=== PATIENT | male | born 1945 | race Caucasian/White ===

== ENCOUNTER 2020-05-01 14:49 | Emergency (ER) | payer MEDICARE, SELFPAY ==
--- NOTE | ~2020-05-01 | CT_ITS ---
EXAMINATION: CT abdomen pelvis w con EXAM DATE: 05/01/2020 16:33 INDICATION: Left-sided abdominal pain. TECHNIQUE: Spiral CT of the abdomen and pelvis was performed following intravenous injection of 100 m L Omnipaque 350. Axial, coronal and sagittal images were reviewed. The dose-length product (DLP) fo r this examination was 1474.86 mGy-cm. The exposure was tailored according to patient size (auto mA exposure control), and iterative reconstruction (ASIR) was used as additional dose reduction techniqu e. Comparison is made to prior examination from 08/29/2018, 04/08/2016. FINDINGS: Pancreatic tail cystic region measuring about 1.3 cm, demonstrating long-term stability con sistent with benign histology. The liver, spleen, adrenal glands and pancreas are otherwise unremark able. Gallbladder not identified, patient likely has had cholecystectomy. Portal and splenic veins are patent. Kidneys enhance symmetrically. There is no hydronephrosis. The prostate is unremarkab le. The bladder is unremarkable. There is no retroperitoneal or pelvic lymphadenopathy. There is mild scattered arteriosclerotic disease. There is colonic redundancy, with sigmoid colon extending up to the upper abdomen, measuring up to 9 cm in diameter, but no mesenteric twisting, a finding which was present on a prior study in 2016 when sigmoid volvulus was reported. Moderate amount of colonic stool in the ascending and transverse colo n which is also extremely tortuous. Patient has had laparotomy. Small seroma left of midline just above the umbilicus. The stomach and sm all bowel are unremarkable. No free intraperitoneal gas. The heart is normal in size. There ar e no pericardial or pleural effusions. The lung bases are unremarkable. There are no osteoblastic o r osteolytic lesions identified. IMPRESSION: Severe colonic tortuosity with moderately distended right hemicolon, more severely disten ded sigmoid colon, Colonic redundancy likely puts this patient at risk for recurrent sigmoid volvulu s, but findings on this study consistent with constipation. Reviewed, dictated and finalized at location A. SCAPE FOREMAN IMPRESSION: Severe colonic tortuosity with moderately distended right hemicolon , more severely distended sigmoid colon, Colonic redundancy likely puts this p atient at risk for recurrent sigmoid volvulus, but findings on this study consi stent with constipation.
[2020-05-01 15:10] VITALS: BP 148/70; PULSE 97; RESP 16; TEMP 36.3; O2SAT 97
[2020-05-01 15:52] LABS: Basophils Percent Auto 0.5 % (0.2-1.2); Eosinophils Absolute Auto 0.3 K/mm3 (0-0.3); Eosinophils Percent Auto 3.4 % (0-4.4); Hemoglobin 13.2 g/dL (14.0-18.0); Immature Granulocyte Absolute 0.04 K/mm3 (0.00-0.031); Immature Granulocyte Percent A 0.5 % (0-0.5); Lymphocytes Absolute Auto 3.14 K/mm3 (0.9-3.2); Lymphocytes Percent Auto 38.7 % (18.3-44.2); Mean Corpuscular HGB Conc 33.8 g/dl (32-36); Mean Corpuscular Hemoglobin 29.5 pg (26-34); Mean Corpuscular Volume 87.2 fl (80-100); Mean Platelet Volume 9.6 fl (7.4-10.4); Monocytes Absolute Auto 0.8 K/mm3 (0.1-0.6); Neutrophils Absolute Auto 3.8 K/mm3 (1.3-6.7); Neutrophils Percent Auto 46.9 % (45.5-73.1); Platelet Count Result 250 k/mm3 (150-375); Red Blood Count 4.47 M/mm3 (4.6-6.20); Red Cell Distribution Width 12.9 % (11.5-14.5); White Blood Count 8.1 K/mm3 (4.5-10.0)
[2020-05-01] MEDS: SODIUM CHLORIDE 0.9% IV 500 ML 999 ML IV CONT (15:52)
[2020-05-01] MEDS: FAMOTIDINE 20 MG/2 ML VIAL IV PUSH (15:53)
[2020-05-01] MEDS: ONDANSETRON INJ 4 MG/2 ML VIAL IV PUSH (15:53)
--- NOTE | 2020-05-01 15:53 | ED.ABDPAIN ---
HPI - Abdominal Pain General Chief Complaint: Abdominal Pain Stated Complaint: ABD PAIN [id number] Time Seen by Provider: 05/01/20 15:23 Source: patient and family Mode of arrival: ambulatory Limitations: no limitations History of Present Illness HPI narrative: Patient is a 75-year-old male who presents with abdominal pain localized to the left abdomen that is been present for 2 weeks intermittent in nature became worse over the last 24 hours noting aching pain worse with activity or movement with associated nausea and chills history abdominal surgeries 980 has had a colon resection patient also notes abdominal hernia repair patient on arrival is in no distress notes that he is distended which is new patient has not taken anything for his symptoms and on arrival is in no distress denies rectal bleeding or melena or urinary issues Related Data Home Medications Medication Instructions Recorded Confirmed simvastatin 40 mg tablet 20 mg PO HS tablet 07/25/19 03/03/20 acetaminophen [Tylenol Arthritis] 1,300 mg PO QAM AND QPM PRN 05/01/20 diltiazem HCl [Cartia XT] 240 mg PO DAILY 05/01/20 tramadol 100 mg PO QID PRN 05/01/20 Allergies Allergy/AdvReac Type Severity Reaction Status Date / Time bee pollen Allergy Intermediate anaphylaxis Verified 05/01/20 15:26 reaction Penicillins Allergy Unknown breaks out Verified 05/01/20 15:26 in [facility] Review of Systems Review of Systems: All systems reviewed & are unremarkable except as noted in HPI and below PMFSH Past Medical History Medical History Arthritis Back pain High blood pressure Type 2 diabetes mellitus Surgical History Surgical History Hx of cholecystectomy Family History Family History Father Diabetes mellitus Family history of glaucoma Hypertension Family history of elevated blood lipids Cerebrovascular accident Mother Diabetes mellitus Family history of mental disorder Family history of glaucoma Hypertension Family history of elevated blood lipids Cerebrovascular accident Sibling Diabetes mellitus Depression Family history of elevated blood lipids Other Family history of malignant neoplasm Social History Social History Smoking status: Former smoker Second hand tobacco smoke exposure: No Smoking end date: 06/14/07 Alcohol intake: never Substance use: never Additional living arrangements comments: (elio) Exam Narrative: Exam Narrative: GENERAL: Well-appearing, well-nourished, and in no acute distress. HEAD: Normocephalic, atraumatic. EYES: PERRLA and EOMI. ENT: Nares clear, no rhinorrhea or epistaxis. Mucous membranes moist. CHEST: Clear to auscultation. No respiratory distress. No wheezes rales or rhonchi HEART: Regular rate and rhythm. No murmur heard. Normal peripheral pulses. ABDOMEN: Soft, tenderness of the left abdomen with voluntary guarding, distended EXTREMITIES: Normal range of motion. No edema. SKIN: Warm, dry, no rash. NEURO: No focal deficits. Alert and oriented x3. Cranial nerves II through XII grossly intact PSYCH: Normal mood and affect. Course Course Emergency Course: Patient in the room in no distress aware of case findings treatment plan diagnosis discussion with general surgery and recommendations patient refused the soapsuds enema his notes that he can do that at home and she has the materials to do so patient will be managed his constipation and will follow in clinic with general surgery and has been given strict reasons to return was hydrated and given medications in the emergency department with interval improvement Vital Signs Vital signs: Vital Signs Temperature 97.3 F L 05/01/20 15:10 Pulse Rate 97 05/01/20 15:10 Respiratory Rate
[2020-05-01 16:05] LABS: Alanine Aminotransferase 23 U/L (4-50); Albumin Level 4.1 g/dL (3.5-5.1); Alkaline Phosphatase 103 U/L (38-126); Anion Gap 8 mmol/L (8-16); Aspartate Amino Transferase 31 U/L (17-59); Bilirubin,Total 0.7 mg/dL (0.2-1.3); Blood Urea Nitrogen 20 mg/dL (9-20); Calcium 8.9 mg/dL (8.4-10.2); Carbon Dioxide 30 mmol/L (22-30); Chloride 102 mmol/L (98-107); Estimated CRCL calculation 72 ml/min; Estimated Glomerular Filt Rate > 60; Glucose 123 mg/dL (75-110); Lipase 28 U/L (23-300); Potassium 3.5 mmol/L (3.4-5.0); Sodium 140 mmol/L (137-145)
[2020-05-01 16:18] VITALS: BP 139/71; PULSE 80; RESP 20; O2SAT 97
[2020-05-01 16:55] LABS: Add Urine Microscopic? NO; Appearance Urine Clear (Clear); Bilirubin Urine Negative (Negative); Blood Urine Negative (Negative); Color Urine Colorless (Yellow); Glucose Urine UA Negative (Negative); Ketones Urine Negative (Negative); Leukocyte Esterase Ur Negative LEU/UL (Negative); Nitrate Urine Negative (Negative); Protein Urine Negative (Negative); Specific Grav Ur 1.014 (1.001-1.035); Urobilinogen Urine Negative mg/dL (<2.0)
[2020-05-01 16:57] LABS: Lactic Acid Reflex 1.5 mmol/L (0.7-2.1)
[2020-05-01 17:30] VITALS: BP 127/65; PULSE 81; RESP 20; O2SAT 96
[2020-05-01 18:00] VITALS: BP 133/66; PULSE 80; RESP 20; O2SAT 96
--- NOTE | 2020-05-01 18:30 | PC.NURSE ---
Pt refusing enema at this time. PT states they have the supplies at home and will do the enema at home. EDP made aware.
[2020-05-01 19:00] VITALS: BP 139/80; PULSE 84; RESP 20; O2SAT 98
== END 2020-05-01 19:15 | disposition home or self-care (01) ==
PROVIDERS: Emergency Medicine Emergency Medical Services; Emergency Provider Emergency Medicine; PCP Family Medicine
DX: R10.9 Unspecified abdominal pain (principal); K59.00 Constipation, unspecified; M19.90 Unspecified osteoarthritis, unspecified site; I10 Essential (primary) hypertension; E11.9 Type 2 diabetes mellitus without complications
CPT/HCPCS: 36415; 74177; 80053; 81003; 83605; 83690; 85025; 96361; 96374; 96375; 99284; J0131; J2405; J7040; Q9967

== ENCOUNTER 2020-07-23 12:31 | Outpatient (RCR) | payer MEDICARE, SELFPAY ==
[2020-07-23 12:38] VITALS: BMI 40.3
[2020-07-23 12:44] VITALS: BMI 40.3
== END 2020-10-07 11:08 | disposition home or self-care (01) ==
LOC: ANHDMC 12:31
PROVIDERS: Family Provider Family Medicine; PCP Family Medicine; Visit Provider Physician Assistant
DX: E11.65 Type 2 diabetes mellitus with hyperglycemia (principal); Z71.3 Dietary counseling and surveillance
CPT/HCPCS: 97802

== ENCOUNTER 2021-07-08 09:59 | Outpatient (CLI) | payer MEDICARE, SELFPAY ==
[2021-07-08 17:01] LABS: Anion Gap 15 mmol/L (8-16); Blood Urea Nitrogen 21 mg/dL (9-20); Calcium 10.5 mg/dL (8.4-10.2); Carbon Dioxide 28 mmol/L (22-30); Chloride 94 mmol/L (98-107); Estimated Glomerular Filt Rate > 60; Glucose 198 mg/dL (65-110); HDL Direct 35 mg/dL; Potassium 3.9 mmol/L (3.4-5.0); Sodium 137 mmol/L (137-145)
[2021-07-08 17:13] LABS: LDL Cholesterol Direct 63 mg/dL
[2021-07-08 17:32] LABS: Thyroid Stimulating Hormone 0.759 uIU/mL (0.465-4.680)
[2021-07-08 17:34] LABS: Creatinine Urine 181.6 mg/dL
[2021-07-08 17:38] LABS: MALB Creatinine Ratio 4.5 mg/g (0-30); Microalbumin Urine Random 8.2 mg/L (0-16.7)
== END 2021-07-08 10:00 | disposition home or self-care (01) ==
PROVIDERS: PCP Family Medicine; Visit Provider Internal Medicine Endocrinology, Diabetes & Metabolism
DX: E11.65 Type 2 diabetes mellitus with hyperglycemia (principal); E78.2 Mixed hyperlipidemia; Z79.4 Long term (current) use of insulin
CPT/HCPCS: 36415; 80048; 82043; 82607; 83718; 83721; 84443

== ENCOUNTER 2021-11-12 09:55 | Outpatient (CLI) | payer MEDICARE, SELFPAY | END 2021-11-12 09:56 | disposition home or self-care (01) | LOC: ANHAUDIO 09:56 | PROVIDERS: PCP Family Medicine; Referring Provider Family Medicine; Visit Provider Family Medicine | DX: H91.90 Unspecified hearing loss, unspecified ear (principal) | CPT/HCPCS: 92557; 92567 ==

== ENCOUNTER 2022-01-27 09:00 | Outpatient (RCR) | payer MEDICARE, SELFPAY | END 2022-01-27 23:59 | disposition home or self-care (01) | LOC: ANHAUDIO 09:00 | PROVIDERS: PCP Family Medicine; Visit Provider Family Medicine | DX: Z46.1 Encounter for fitting and adjustment of hearing aid (principal) | CPT/HCPCS: 99199; V5261; V5264 ==

== ENCOUNTER → 2022-03-10 14:01 | Outpatient (CLI) | payer MEDICARE, SELFPAY ==
--- NOTE | ~2022-03-10 | XR_ITS ---
XR lumbar spine 2-3V 03/10/2022 14:34 Indication: Low back pain Procedure: 3 views lumbar spine Comparison: No prior studies for comparison. Findings: There is advanced disc narrowing and endplate degenerative change at all lumbar levels. The re is moderate multilevel facet hypertrophy at L3-4, L4-5 and L5-S1. There are ventral osteophytes at multiple levels. No acute fracture or traumatic malalignment. Pedicles intact. Sacral foramen are sy mmetric. Impression: 1: Severe lumbar spondylosis. Reviewed, dictated and finalized at location B. Impression: 1: Severe lumbar spondylosis.
--- NOTE | ~2022-03-10 | XR_ITS ---
EXAMINATION: XR_CERV2-3V_CR DATE: 03/10/2022 14:34 INDICATION: Neck pain. TECHNIQUE: 3 views of cervical spine on 4 radiographs were obtained. COMPARISON: Cervical spine radiographs 07/05/2017, CT cervical spine 11/03/2011 FINDINGS: Bone alignment is normal. There are changes of anterior fusion procedure from C4 to C7 with C5 corpectomy, healed interbody strut graft and interbody bone graft, and anterior plate and screws. There are changes of posterior fusion procedure from C5 to T1 with C5 and C6 lateral mass screws and T1 pedicle screws. Vertebral body heights are normal. Disc heights are normal at C2-C3 and C3-C4. At C3-C4, there is severe bilateral facet joint osteoarthritis. No central canal stenosis or prevertebr al soft tissue swelling. IMPRESSION: 1. Anterior fusion procedure from C4 to C7. 2. Posterior fusion procedure from C5 to T1. Reviewed, dictated and finalized at location A.
--- NOTE | ~2022-03-10 | XR_ITS ---
EXAMINATION: XR hand LT 2V, XR hand RT 2V DATE: 03/10/2022 14:34 INDICATION: Arthralgia with bilateral hand pain TECHNIQUE: 1. Posteroanterior and lateral views of the left hand were obtained. 2. Posteroanterior and lateral views of the right hand were obtained. COMPARISON: None. FINDINGS: Partial amputation of the distal aspect of the left second digit with osteotomy at the level of the h ead of the middle phalanx. Very small thin wire-like metallic density in the soft tissues at the palm ar/ulnar aspect of the left second middle phalanx. Flexion at the left fifth proximal interphalangeal joint which could be positional. Otherwise normal alignment at the bilateral hands. No fracture. Rel ative symmetric pattern of polyarticular osteoarthritis, severe at the right second-fourth and left a nd third and fourth metacarpophalangeal joints and at the bilateral first interphalangeal and third d istal interphalangeal joints. Moderate severity osteoarthritis at the left distal radioulnar, left se cond metacarpophalangeal and many of the remaining bilateral interphalangeal joints. Mild osteoarthri tis at the remaining joints throughout both hands. No erosions to suggest inflammatory arthritis. Ext ensive vascular calcifications throughout both hands and wrists. IMPRESSION: 1. 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 Reviewed, dictated and finalized at location A. IMPRESSION: 1. Extensive moderate to severe polyarticular osteoarthritis at the bilateral h ands.
== END ==
PROVIDERS: PCP Physician Assistant; Visit Provider Physician Assistant
DX: M25.50 Pain in unspecified joint (principal); M47.896 Other spondylosis, lumbar region; Z98.1 Arthrodesis status; M19.041 Primary osteoarthritis, right hand; M19.042 Primary osteoarthritis, left hand
CPT/HCPCS: 72040; 72100; 73120

== ENCOUNTER 2022-04-21 12:22 | Outpatient (RCR) | payer MEDICARE, SELFPAY ==
[2022-04-21 15:58] VITALS: BMI 38.5
== END 2022-07-06 08:19 | disposition home or self-care (01) ==
LOC: ANHWOC 12:22
PROVIDERS: PCP Physician Assistant; Visit Provider Family Medicine
DX: Z43.2 Encounter for attention to ileostomy (principal); Z90.49 Acquired absence of other specified parts of digestive tract
CPT/HCPCS: 99214; A9270; G0463

== ENCOUNTER 2022-05-15 12:21 | Outpatient (CLI) | payer MEDICARE, SELFPAY ==
--- NOTE | ~2022-05-15 | MR_ITS ---
EXAMINATION: MR lumbar spine wo con DATE: 05/15/2022 13:13 INDICATION: Back pain. TECHNIQUE: Magnetic resonance imaging (MRI) of the lumbar spine was performed without intravenous con trast. Sequences included sagittal T2-weighted FSE, sagittal T2-weighted FS FSE, sagittal T1-weighted FSE, and axial T2-weighted FSE. COMPARISON: Lumbar spine radiographs 03/10/2022 FINDINGS: There is 10 degrees levoscoliosis of lumbar spine. There is 3 mm retrolisthesis of L1 on L2 , 5 mm retrolisthesis of L2 on L3, 6 mm retrolisthesis of L3 on L4. There is mild chronic anterior we dging of T11 and T12 vertebral bodies. There is mildly decreased disc height at L1-L2, moderately dec reased disc height at L2-L3, L3-L4, and L4-L5, and severely decreased disc height at L5-S1 with endpl ate remodeling. The distal spinal cord signal intensity is normal. The conus medullaris is at T12-L1. The bladder is markedly distended. The following disc levels are specifically discussed: L1-L2: The disc is bulging with superimposed left central extrusion. There is moderate bilateral face t joint osteoarthritis. There is mild bilateral neural foraminal stenosis. There is mild central prudence l stenosis. L2-L3: The disc is bulging and has an annular fissure. There is moderate bilateral facet joint osteoa rthritis. There is moderate bilateral neural foraminal stenosis. There is mild central canal stenosis . L3-L4: This is bulging and has an annular fissure. There is severe right and moderate left facet join t osteoarthritis. There is moderate right and mild left neural foraminal stenosis. There is mild cent ral canal stenosis. L4-L5: The disc is bulging and has an annular fissure. There is severe bilateral facet joint osteoart hritis. There is moderate right and mild left neural foraminal stenosis. There is mild central canal stenosis. L5-S1: The disc is bulging and has an annular fissure. There is severe bilateral facet joint osteoart hritis. There is mild right and moderate left neural foraminal stenosis. There is mild central canal stenosis. IMPRESSION: 1. Severe lumbar spondylosis. 2. Lumbar levoscoliosis. Reviewed, dictated and finalized at location E. L FISHERMAN
== END 2022-05-15 12:22 | disposition home or self-care (01) ==
PROVIDERS: PCP Physician Assistant; Visit Provider Physician Assistant
DX: M47.896 Other spondylosis, lumbar region (principal)
CPT/HCPCS: 72148

== ENCOUNTER 2022-06-27 07:46 | Inpatient (IN) | payer MEDICARE, SELFPAY ==
[2022-06-27] VITALS (9 sets, daily range): BP systolic 92–141; BP diastolic 55–89; PULSE 107–122; RESP 16–26; TEMP 36.1–38.2; O2SAT 4–98; BMI 37.1
--- NOTE | ~2022-06-27 | XR_ITS ---
XR chest 2V DATE: 06/27/2022 08:11 INDICATION: Weakness for 3 days. Fall. TECHNIQUE: AP and lateral views COMPARISON: 01/18/2017 AP and lateral chest FINDINGS: Heart size is likely within normal limits considering magnification associated with AP proj ection. Chronic moderate elevation right leaf of diaphragm. Lungs appear clear of infiltrate or consolidation . No pleural effusion or pulmonary vascular congestion or pneumothorax. Status post anterior and posterior cervical spine surgical fusion. Degenerative spurring of the thora cic spine. Osteopenia. IMPRESSION: Chronic moderate elevation right diaphragm No active cardiopulmonary disease Reviewed, dictated and finalized at location A. P DYNAMICS INSTRUCTOR
--- NOTE | 2022-06-27 07:53 | ED.GENADULT ---
HPI - General Adult General Chief complaint: Weakness Stated complaint: Weakness, Fall Time Seen by Provider: 06/27/22 07:48 Source: patient, family and EMS Mode of arrival: EMS Limitations: clinical condition History of Present Illness HPI narrative: Patient is 77 years old white male came from home by ambulance. Does not know why, he answers I do not know for every questions.. at the bedside who called the ambulance. She is telling me that he been getting weaker over the last 6 months, refuses to use a walker at home, maybe he have dementia, had a fall while trying to urinate yesterday, does not know if he blacked out or not, patient does not know either. Patient denying any symptoms saying I do not know. He denies any fever, chills, nausea, vomiting, chest pain, shortness of breath, abdominal pain, back pain or headache. Patient did not eat his breakfast or take his regular medication this morning prior to arrival Related Data Home Medications Medication Instructions Recorded Confirmed acetaminophen 650 mg 1,300 mg PO QAM AND QPM PRN Pain 05/01/20 04/21/22 tablet,extended release Allergies Allergy/AdvReac Type Severity Reaction Status Date / Time bee pollen Allergy Intermediate anaphylaxis Verified 04/16/22 14:23 reaction Penicillins Allergy Unknown breaks out Verified 04/16/22 14:23 in hives Review of Systems Review of Systems: All systems reviewed & are unremarkable except as noted in HPI and below PMFSH Past Medical History Medical History Abrasion of right lower extremity Arthritis Back pain Degenerative arthritis of knee, bilateral Diabetic retinopathy Gastro-esophageal reflux disease without esophagitis Hand abrasion Hypercalcemia Hypertension Macular degeneration Mixed hyperlipidemia Neuropathy Obstructive sleep apnea (adult) (pediatric) Scalp abrasion Tubular adenoma of colon removed 2-21 Type 2 diabetes mellitus with hyperglycemia, with long-term current use of insulin Surgical History Surgical History History of ileostomy 01/08/21 Hx of cholecystectomy 01/08/21 Hx of total colectomy 2020 S/P hernia surgery Family History Family History Father Diabetes mellitus Family history of glaucoma Hypertension Family history of elevated blood lipids Cerebrovascular accident Mother Diabetes mellitus Family history of mental disorder Family history of glaucoma Hypertension Family history of elevated blood lipids Cerebrovascular accident Sibling Diabetes mellitus Depression Family history of elevated blood lipids Other Family history of malignant neoplasm Social History Social History Smoking packs per day: 2 Smoking cigarettes per day: 40.0 Years smoked: 25 Smoking pack-years: 50.00 Smoking status: Former smoker Tobacco type: cigarettes and cigars Second hand tobacco smoke exposure: No Smoking end date: 06/14/07 Alcohol intake: current Alcohol use details: occassional Substance use: never Additional living arrangements comments: (elio) Spiritual care concerns: No Exam Narrative: General appearance: Well-developed, well-nourished, obese, lethargic Skin: Normal color, chronic stasis dermatitis of the lower extremities Head: Normocephalic, nontraumatic Eyes: Clear conjunctiva ENT: Oropharynx normal, ears normal, nose normal Neck: Supple, nontender Chest and respiratory: Airway patent, no respiratory distress, no accessory muscle use Heart: Regular rate/rhythm Abdomen: Soft, nontender, no organomegaly, quiet bowel sounds, colostomy bag in place, full of stool Vascular: Normal peripheral pulses, normal capillary refill. Musculoskeletal: Normal range of motion, nontender back Neurologic: Alert and orient
[2022-06-27 07:55] LABS: Glucose Point of Care 171 mg/dl (65-105)
[2022-06-27 08:02] LABS: Basophils Percent Auto 0.5 % (0.2-1.2); Eosinophils Percent Auto 0.3 % (0-4.4); Hematocrit 38.3 % (42.0-52.0); Hemoglobin 12.7 g/dL (14.0-18.0); Immature Granulocyte Absolute 0.02 K/mm3 (0.00-0.031); Immature Granulocyte Percent A 0.3 % (0-0.5); Lymphocytes Absolute Auto 0.91 K/mm3 (0.9-3.2); Lymphocytes Percent Auto 14.7 % (18.3-44.2); Mean Corpuscular HGB Conc 33.2 g/dl (32-36); Mean Corpuscular Hemoglobin 29.6 pg (26-34); Mean Corpuscular Volume 89.3 fl (80-100); Mean Platelet Volume 10.4 fl (7.4-10.4); Monocytes Absolute Auto 1.2 K/mm3 (0.1-0.6); Monocytes Percent Auto 18.7 % (2.6-8.5); Neutrophils Absolute Auto 4.1 K/mm3 (1.3-6.7); Neutrophils Percent Auto 65.5 % (45.5-73.1); Platelet Count Result 203 k/mm3 (150-375); Red Blood Count 4.29 M/mm3 (4.6-6.20); Red Cell Distribution Width 12.7 % (11.5-14.5); White Blood Count 6.2 K/mm3 (4.5-10.0)
[2022-06-27 08:14] LABS: Alanine Aminotransferase 34 U/L (6-50); Albumin Level 4.3 g/dL (3.5-5.1); Alkaline Phosphatase 112 U/L (38-126); Anion Gap 9 mmol/L (8-16); Aspartate Amino Transferase 50 U/L (17-59); Bilirubin,Total 0.6 mg/dL (0.2-1.3); Blood Urea Nitrogen 24 mg/dL (9-20); Calcium 8.6 mg/dL (8.4-10.2); Carbon Dioxide 25 mmol/L (22-30); Chloride 104 mmol/L (98-107); Estimated CRCL calculation 56 ml/min; Estimated Glomerular Filt Rate 49; Glucose 195 mg/dL (65-110); Potassium 3.9 mmol/L (3.4-5.0); Sodium 138 mmol/L (137-145)
[2022-06-27] MEDS: SODIUM CHLORIDE 0.9% IV 1,000 ML 999 ML IV CONT ×2 (08:16→10:15)
[2022-06-27 09:27] LABS: Lactic Acid Reflex 1.8 mmol/L (0.7-2.0)
[2022-06-27 09:36] LABS: Appearance Urine Clear (Clear); Bilirubin Urine Negative (Negative); Blood Urine Negative (Negative); Color Urine Yellow (Yellow); Glucose Urine UA Negative (Negative); Ketones Urine Negative (Negative); Leukocyte Esterase Ur Negative LEU/UL (Negative); Nitrate Urine Negative (Negative); Protein Urine 1+ mg/dL (Negative); Urobilinogen Urine 0.2 mg/dL (<2.0); pH Urine 5.5 (5.0-9.0)
[2022-06-27 09:43] LABS: Add Urine Microscopic? YES; Mucus Urine Rare /lpf; RBC Urine 0-2 /hpf (0-2); WBC Urine 0-3 /hpf
[2022-06-27 09:47] LABS: Influenza A QL RT-PCR Negative (Negative); Influenza B QL RT-PCR Negative (Negative); RSV RNA, RT-PCR Negative (Negative); SARS-CoV-2 RNA PCR Positive
--- NOTE | 2022-06-27 10:06 | ECG_ITS ---
Measurements Intervals Dobson Rate: 109 P: WI: 0 QRS: -62 QRSD: 160 T: 75 QT: 377 QTc: 509 Interpretive Statements ATRIAL FIBRILLATION WITH RAPID VENTRICULAR RESPONSE RIGHT BUNDLE BRANCH BLOCK LEFT ANTERIOR FASCICULAR BLOCK BASELINE ARTIFACT- I, II, III, AVR, AVL, AVF, V1-V3 ABNORMAL ECG NO PREVIOUS ECG AVAILABLE FOR COMPARISON Electronically Signed On 06-27-2022 16:06:46 [employer] HEL[employer] by Mal Lofton D.O.
[2022-06-27] MEDS: lisinopriL 20 MG TABLET 40 MG PO (10:15)
--- NOTE | 2022-06-27 11:18 | ADMGEN ---
This patient, Renetta Saenz, was admitted to 2 Medical Room 259-01. Patient/family oriented to hospital policies and general routines including ID bracelet, bed and alarms, visiting hours, pain management, procedures, bathroom and other care routines, personal items, smoking policy, room service/diet, and visiting hours. Information on how to activate the Rapid Response Team has been discussed. Patient/Family are encouraged to report perceived risks to care and to ask questions if they do not understand what they are told or what they should do.
[2022-06-27] MEDS: SODIUM CHLORIDE 0.9% IV 1,000 ML 100 ML IV CONT ×2 (11:35→15:40)
--- NOTE | 2022-06-27 14:57 | PM.IMHP ---
H&P: HPI History of Present Illness Date/Time: 06/27/22 14:57 Chief Complaint: weakness Narrative: this is a 77-year-old male patient who resides with his . The patient came by ambulance with complaints of weakness. The patient is not able to answer most of the questions. There is some questionable dementia. The was here earlier and was answering questions. The told the ER doctor that over last 6 months the patient has become more weaker and refuses to use a walker at home. The patient fell yesterday while trying to walk it was not known if he blacked out. The patient denies any fever chills or any nausea vomiting or chest pain. he denies any dizziness. The patient has not eat breakfast or taken any of his medications prior to arrival to the emergency department. His H&H is 12.7 and 38.3. his BUN is 24 creatinine is 1.4. GFR is 49. Glucose is 195. last A1c was 7.2 on 01/06/2022. The patient is negative for UTI. The patient is negative for influenza a B and RSV. The patient was positive for COVID. The patient was given 2 L of IV fluids Cardizem and lisinopril. Heart rate 122 and his heart rate has been above 107 all day today. Patient does have a temperature of 38.2? C. chest x-ray was read as chronic moderate elevation right diaphragm no acute cardiopulmonary disease. The patient is being admitted to observation status on the date of service of 06/27/2021. Review of Systems Review of Systems: See HPI All systems reviewed & are unremarkable except as noted in HPI and below Constitutional: Constitutional: Reports as per HPI and Reports no additional constitutional complaints Eyes: Eyes: Reports as per HPI and Reports no additional eye complaints ENT: Reports system reviewed and no additional complaints, except as documented and Reports Normal hearing present Cardiovascular: Cardiovascular: Reports no additional cardiovascular complaints Respiratory: Respiratory: Reports no additional respiratory complaints and Reports no additional respiratory complaints Gastrointestinal: Gastrointestinal: Reports as per HPI and Reports no additional gastrointestinal complaints Musculoskeletal: Musculoskeletal: Reports no additional musculoskeletal complaints Integumentary/Breasts: Skin/Breast: Reports system reviewed and no additional complaints, except as docu and Reports as per HPI Neurologic: Reports system reviewed and no additional complaints, except as documented, Reports as per HPI and Reports Normal hearing present Psychiatric: Psychiatric: Reports no additional psychiatric complaints and Reports as per HPI Endocrine: Endocrine: Reports no additional endocrine complaints Hematologic/Lymphatic: Hematologic/Lymphatic: Reports no additional hematologic/lymphatic complaints Allergic/Immunologic: Allergic/Immunologic: Reports no additional allergic/immunologic complaints [facility] Past Medical History Medical History (Updated 06/27/22 @ 15:10 by Montse Soto NP) Abrasion of right lower extremity Amputated finger tip of left index finger 1991 Arthritis Back pain Chronic venous stasis Degenerative arthritis of knee, bilateral Depression Diabetic retinopathy Gastro-esophageal reflux disease without esophagitis Hand abrasion History of diverticulitis Hypercalcemia Hypertension Macular degeneration Mixed hyperlipidemia Neuropathy Obstructive sleep apnea (adult) (pediatric) Scalp abrasion Tubular adenoma of colon removed 2-21 Type 2 diabetes mellitus with hyperglycemia, with long-term current use of insulin Surgical History Surgical History (Updated 06/27/22 @ 15:10 by Montse Soto NP) H/O cataract extraction History of appendectomy History of cervical spinal surgery History of ileostomy 01/08/21 History of lumbar fusion History of tonsillectomy Hx of cholecystectomy 01/08/21 Hx of total colectomy 2020 S/P hernia surgery S/P ORIF (open reduction internal fixation) fracture ri
[2022-06-27] MEDS: DIGOXIN INJ 250 MCG/ML 2 ML AMP (*BKC) IV PUSH (15:37)
[2022-06-27] MEDS: GABAPENTIN 300 MG CAPSULE 600 MG PO (16:25)
[2022-06-27 16:47] LABS: Glucose Point of Care 275 mg/dl (65-105)
[2022-06-27] MEDS: INSULIN ASPART (*BKC) 100 UNITS/ML SUB-Q (16:51)
[2022-06-27] MEDS: FAMOTIDINE 20 MG/2 ML VIAL IV PUSH (20:52)
[2022-06-27 21:38] LABS: Glucose Point of Care 256 mg/dl (65-105)
[2022-06-27 21:38] LABS: Glucose Point of Care 302 mg/dl (65-105)
[2022-06-28 02:34] VITALS: BP 142/58; PULSE 109; RESP 18; TEMP 36.2; O2SAT 95
[2022-06-28 06:00] VITALS: BP 140/88; PULSE 90; RESP 18; TEMP 36.6; O2SAT 96
[2022-06-28 06:09] LABS: Lactic Acid Reflex 1.3 mmol/L (0.7-2.0)
[2022-06-28 06:23] LABS: Anion Gap 9 mmol/L (8-16); Blood Urea Nitrogen 19 mg/dL (9-20); Calcium 7.6 mg/dL (8.4-10.2); Carbon Dioxide 23 mmol/L (22-30); Chloride 106 mmol/L (98-107); Estimated CRCL calculation 70 ml/min; Estimated Glomerular Filt Rate > 60; Glucose 256 mg/dL (65-110); Lactate Dehydrogenase 335 U/L (120-246); Magnesium 1.7 mg/dL (1.6-2.3); Phosphorus 3.2 mg/dL (2.5-4.5); Potassium 3.5 mmol/L (3.4-5.0); Sodium 138 mmol/L (137-145)
[2022-06-28 06:47] LABS: Creatine Kinase 5868 U/L (55-170)
[2022-06-28 06:56] LABS: Thyroid Stimulating Hormone Reflex 0.177 uIU/mL (0.465-4.68)
[2022-06-28 07:23] LABS: Free T4 Free Thyroxine Reflex 0.91 ng/dL (0.78-2.19)
[2022-06-28 07:24] LABS: Hemoglobin A1C 7.8 % (<5.7)
[2022-06-28 08:39] LABS: Glucose Point of Care 291 mg/dl (65-105)
[2022-06-28] MEDS: DULoxetine HCL 60 MG CAPSULE.DR PO (08:58)
[2022-06-28] MEDS: GABAPENTIN 300 MG CAPSULE 600 MG PO ×3 (08:58→17:32)
[2022-06-28] MEDS: ENOXAPARIN 40 MG/0.4 ML SYRINGE SUB-Q (08:58)
[2022-06-28] MEDS: FAMOTIDINE 20 MG/2 ML VIAL IV PUSH ×2 (08:58→21:06)
[2022-06-28] MEDS: INSULIN ASPART (*BKC) 100 UNITS/ML SUB-Q ×3 (09:08→17:30)
[2022-06-28 09:28] LABS: Total Triiodothyronine (T3) 0.75 NG/ML (0.97-1.69)
[2022-06-28 10:13] VITALS: BP 144/69; PULSE 91; RESP 18; TEMP 36; O2SAT 95
[2022-06-28 11:59] LABS: Glucose Point of Care 333 mg/dl (65-105)
--- NOTE | 2022-06-28 12:01 | PM.IMPN ---
Progress Note: A&P Assessment and Plan (1) COVID: Code(s): U07.1 - COVID-19 Status: Acute Assessment and Plan: -the patient is on contact and droplet isolation. - conservative care with antipyretics. -the patient is currently on room air. -Simvastatin has been held due to the weakness. Patient not hypoxic. Continue to monitor for any worsening (2) RENETTA (acute kidney injury): Code(s): N17.9 - Acute kidney failure, unspecified Status: Acute Assessment and Plan: creatinine of 1.4 on admission. Baseline 1.1 flu was given back to baseline today. -Avoid any nephrotoxic medication - hydrochlorothiazide has been held -lisinopril has been held - metformin has been held. (3) Weakness: Code(s): R53.1 - Weakness Status: Acute Assessment and Plan: Generalized weakness. Likely related to underlying COVID infection PT OT evaluation (4) Depression: Code(s): F32.A - Depression, unspecified Status: Acute Assessment and Plan: -continue with Cymbalta (5) Atrial fibrillation with rapid ventricular response: Code(s): I48.91 - Unspecified atrial fibrillation Status: Acute Assessment and Plan: AFib with RVR arrival. One dose of digoxin was given Heart rate better will continue home medication which include diltiazem 300 mg daily On anticoagulation at home likely recurrent falls (6) Type 2 diabetes mellitus with hyperglycemia, with long-term current use of insulin: Code(s): E11.65 - Type 2 diabetes mellitus with hyperglycemia; Z79.4 - detention (current) use of insulin Status: Acute Assessment and Plan: -Accu-Cheks AC and HS with sliding scale insulin and hypoglycemic protocol. A1c at 7.8 Hold metformin due to the acute kidney injury (7) Benign essential hypertension: Code(s): I10 - Essential (primary) hypertension Status: Acute Assessment and Plan: Lisinopril is on hold at this time and hydrochlorothiazide due to the acute renal failure -p.r.n. hydralazine with parameters (8) Mixed hyperlipidemia: Code(s): E78.2 - Mixed hyperlipidemia Status: Acute Assessment and Plan: simvastatin is on hold at this time due to the weakness. (9) Gastro-esophageal reflux disease without esophagitis: Code(s): K21.9 - Gastro-esophageal reflux disease without esophagitis Status: Acute Assessment and Plan: continue with IV Pepcid. Subjective Date/time seen: 06/28/22 12:01 Interval history: HPI:this is a 77-year-old male patient who resides with his .? The patient came by ambulance with complaints of weakness.? The patient is not able to answer most of the questions.? There is some questionable dementia.? The was here earlier and was answering questions.? The told the ER doctor that over last 6 months the patient has become more weaker and refuses to use a walker at home.? The patient fell yesterday while trying to walk it was not known if he? blacked out.? The patient denies any fever chills or any nausea vomiting or chest pain. ? he denies any dizziness.? The patient has not eat breakfast or taken any of his medications prior to arrival to the emergency department.? His H&H is 12.7 and 38.3.? his BUN is 24 creatinine is 1.4.? GFR is 49.? Glucose is 195.? last A1c was 7.2 on 01/06/2022.? ? The patient is negative for UTI.? The patient is negative for influenza a B and RSV.? The patient was positive for COVID.? The patient was given 2 L of IV fluids Cardizem and lisinopril.? Heart rate 122 and his heart rate has been above 107 all day today.? Patient does have a temperature of 38.2? C. chest x-ray was read as chronic? moderate elevation right diaphragm no acute cardiopulmonary disease.? The patient is being admitted to observation status on the date of service of 06/27/2021. 06/28/2022: No overnight events. Denies any complain. Wants to go home. Review of S
[2022-06-28 15:11] VITALS: BP 113/53; PULSE 89; RESP 16; TEMP 36.6; O2SAT 94
[2022-06-28 17:21] LABS: Glucose Point of Care 331 mg/dl (65-105)
[2022-06-28 19:07] VITALS: BP 150/59; PULSE 79; RESP 18; TEMP 36.2; O2SAT 97
[2022-06-28 21:38] LABS: Glucose Point of Care 378 mg/dl (65-105)
[2022-06-28] MEDS: INSULIN ASPART (*BKC) 100 UNITS/ML 8 UNITS SUB-Q (21:56)
[2022-06-28 21:57] VITALS: BP 149/73; PULSE 93; RESP 16; TEMP 36.6; O2SAT 97
[2022-06-29 05:31] LABS: Basophils Percent Auto 0.4 % (0.2-1.2); Hematocrit 37.6 % (42.0-52.0); Hemoglobin 12.6 g/dL (14.0-18.0); Immature Granulocyte Absolute 0.01 K/mm3 (0.00-0.031); Immature Granulocyte Percent A 0.2 % (0-0.5); Lymphocytes Absolute Auto 1.73 K/mm3 (0.9-3.2); Mean Corpuscular HGB Conc 33.5 g/dl (32-36); Mean Corpuscular Hemoglobin 29.3 pg (26-34); Mean Corpuscular Volume 87.4 fl (80-100); Mean Platelet Volume 10.3 fl (7.4-10.4); Monocytes Absolute Auto 0.8 K/mm3 (0.1-0.6); Monocytes Percent Auto 15.3 % (2.6-8.5); Neutrophils Absolute Auto 2.8 K/mm3 (1.3-6.7); Neutrophils Percent Auto 52.1 % (45.5-73.1); Platelet Count Result 191 k/mm3 (150-375); Red Cell Distribution Width 12.7 % (11.5-14.5); White Blood Count 5.4 K/mm3 (4.5-10.0)
[2022-06-29 05:47] LABS: Alanine Aminotransferase 48 U/L (6-50); Albumin Level 3.8 g/dL (3.5-5.1); Alkaline Phosphatase 95 U/L (38-126); Anion Gap 4 mmol/L (8-16); Aspartate Amino Transferase 148 U/L (17-59); Bilirubin,Total 0.5 mg/dL (0.2-1.3); Blood Urea Nitrogen 20 mg/dL (9-20); Carbon Dioxide 28 mmol/L (22-30); Chloride 101 mmol/L (98-107); Estimated CRCL calculation 70 ml/min; Estimated Glomerular Filt Rate > 60; Glucose 301 mg/dL (65-110); Magnesium 1.7 mg/dL (1.6-2.3); Potassium 3.4 mmol/L (3.4-5.0); Sodium 133 mmol/L (137-145)
[2022-06-29 06:48] VITALS: BP 133/60; PULSE 60; RESP 16; TEMP 36.9; O2SAT 92
[2022-06-29 08:29] LABS: Glucose Point of Care 292 mg/dl (65-105)
[2022-06-29] MEDS: GABAPENTIN 300 MG CAPSULE 600 MG PO ×3 (08:45→17:29)
[2022-06-29] MEDS: DULoxetine HCL 60 MG CAPSULE.DR PO (08:45)
[2022-06-29] MEDS: ENOXAPARIN 40 MG/0.4 ML SYRINGE SUB-Q (08:46)
[2022-06-29] MEDS: INSULIN ASPART (*BKC) 100 UNITS/ML SUB-Q ×3 (08:46→17:28)
[2022-06-29] MEDS: FAMOTIDINE 20 MG/2 ML VIAL IV PUSH ×2 (08:46→21:58)
[2022-06-29 09:37] VITALS: BP 172/70; PULSE 64; RESP 18; TEMP 36.6; O2SAT 97
[2022-06-29] MEDS: hydrALAZINE HCL 20 MG/ML VIAL 10 MG IV PUSH (09:54)
--- NOTE | 2022-06-29 11:57 | PM.IMPN ---
Progress Note: A&P Assessment and Plan (1) COVID: Code(s): U07.1 - COVID-19 Status: Acute Assessment and Plan: -the patient is on contact and droplet isolation. - conservative care with antipyretics. -the patient is currently on room air. -Simvastatin has been held due to the weakness And also elevated CK level. Patient not hypoxic. Continue to monitor for any worsening (2) RENETTA (acute kidney injury): Code(s): N17.9 - Acute kidney failure, unspecified Status: Acute Assessment and Plan: creatinine of 1.4 on admission. Baseline 1.1 flu was given back to baseline today. -Avoid any nephrotoxic medication - hydrochlorothiazide has been held -lisinopril has been held - metformin has been held. Also has rhabdomyolysis with CK elevated at 5000 (3) Weakness: Code(s): R53.1 - Weakness Status: Acute Assessment and Plan: Generalized weakness. Likely related to underlying COVID infection PT OT evaluation (4) Depression: Code(s): F32.A - Depression, unspecified Status: Acute Assessment and Plan: -continue with Cymbalta (5) Atrial fibrillation with rapid ventricular response: Code(s): I48.91 - Unspecified atrial fibrillation Status: Acute Assessment and Plan: AFib with RVR arrival. One dose of digoxin was given Heart rate better will continue home medication which include diltiazem 300 mg daily On anticoagulation at home likely recurrent falls (6) Type 2 diabetes mellitus with hyperglycemia, with long-term current use of insulin: Code(s): E11.65 - Type 2 diabetes mellitus with hyperglycemia; Z79.4 - manager long term care (current) use of insulin Status: Acute Assessment and Plan: -Accu-Cheks AC and HS with sliding scale insulin and hypoglycemic protocol. A1c at 7.8 Hold metformin due to the acute kidney injury Restart 70 30 slightly lower dose than home doses (7) Benign essential hypertension: Code(s): I10 - Essential (primary) hypertension Status: Acute Assessment and Plan: Lisinopril is on hold at this time and hydrochlorothiazide due to the acute renal failure -p.r.n. hydralazine with parameters (8) Mixed hyperlipidemia: Code(s): E78.2 - Mixed hyperlipidemia Status: Acute Assessment and Plan: simvastatin is on hold at this time due to the weakness and rhabdomyolysis. (9) Gastro-esophageal reflux disease without esophagitis: Code(s): K21.9 - Gastro-esophageal reflux disease without esophagitis Status: Acute Assessment and Plan: continue with IV Pepcid. (10) Rhabdomyolysis: Code(s): M62.82 - Rhabdomyolysis Status: Acute Assessment and Plan: CK level elevated Will recheck and monitor if still high will restart IV fluid Plan DVT prophylaxis on Lovenox Subjective Date/time seen: 06/29/22 11:57 Interval history: HPI:this is a 77-year-old male patient who resides with his .? The patient came by ambulance with complaints of weakness.? The patient is not able to answer most of the questions.? There is some questionable dementia.? The was here earlier and was answering questions.? The told the ER doctor that over last 6 months the patient has become more weaker and refuses to use a walker at home.? The patient fell yesterday while trying to walk it was not known if he? blacked out.? The patient denies any fever chills or any nausea vomiting or chest pain. ? he denies any dizziness.? The patient has not eat breakfast or taken any of his medications prior to arrival to the emergency department.? His H&H is 12.7 and 38.3.? his BUN is 24 creatinine is 1.4.? GFR is 49.? Glucose is 195.? last A1c was 7.2 on 01/06/2022.? ? The patient is negative for UTI.? The patient is negative for influenza a B and RSV.? The patient was positive for COVID.? The patient was given 2 L of IV fluids Cardizem and lisinopril.? Heart rate 122 and
[2022-06-29 12:10] LABS: Glucose Point of Care 369 mg/dl (65-105)
[2022-06-29 12:36] LABS: Creatine Kinase 4960 U/L (55-170)
[2022-06-29 14:00] VITALS: BP 114/56; PULSE 92; RESP 18; TEMP 35.9; O2SAT 92
--- NOTE | 2022-06-29 14:00 | PCPTNOTE ---
Attempted to see for physical therapy initial evaluation, pt refused as he just got done with working with OT. Will continue to follow.
[2022-06-29] MEDS: SODIUM CHLORIDE 0.9% IV 1,000 ML 75 ML IV CONT (16:21)
[2022-06-29 16:54] LABS: Glucose Point of Care 387 mg/dl (65-105)
[2022-06-29] MEDS: INSULIN HUMAN ISOPHAN/REGULAR 70/30 (*BKC) 100 UNITS/ML 30 UNITS SUB-Q (18:17)
[2022-06-29 18:25] VITALS: BP 156/79; PULSE 84; RESP 18; TEMP 36.6; O2SAT 94
[2022-06-29 22:41] LABS: Glucose Point of Care 351 mg/dl (65-105)
[2022-06-29] MEDS: traMADol HCL (*CRX) 50 MG TABLET PO (22:47)
[2022-06-29 23:05] VITALS: BP 143/65; PULSE 88; RESP 16; TEMP 36.6; O2SAT 96
[2022-06-30] MEDS: LIDOCAINE HCL 2% GEL UROJET 10 ML PKG MUCOUS MEM (02:55)
[2022-06-30 04:00] VITALS: BP 112/78; PULSE 60; RESP 18; TEMP 36.5; O2SAT 93
[2022-06-30 05:37] LABS: Basophils Percent Auto 0.2 % (0.2-1.2); Eosinophils Percent Auto 0.7 % (0-4.4); Hemoglobin 12.2 g/dL (14.0-18.0); Immature Granulocyte Absolute 0.01 K/mm3 (0.00-0.031); Immature Granulocyte Percent A 0.2 % (0-0.5); Lymphocytes Percent Auto 40.7 % (18.3-44.2); Mean Corpuscular Hemoglobin 29.4 pg (26-34); Mean Corpuscular Volume 89.2 fl (80-100); Mean Platelet Volume 10.1 fl (7.4-10.4); Monocytes Absolute Auto 0.6 K/mm3 (0.1-0.6); Monocytes Percent Auto 13.3 % (2.6-8.5); Neutrophils Percent Auto 44.9 % (45.5-73.1); Platelet Count Result 183 k/mm3 (150-375); Red Blood Count 4.15 M/mm3 (4.6-6.20); Red Cell Distribution Width 12.5 % (11.5-14.5); White Blood Count 4.4 K/mm3 (4.5-10.0)
[2022-06-30] MEDS: SODIUM CHLORIDE 0.9% IV 1,000 ML 75 ML IV CONT ×2 (05:40→22:26)
[2022-06-30 05:52] LABS: Alanine Aminotransferase 50 U/L (6-50); Albumin Level 3.5 g/dL (3.5-5.1); Alkaline Phosphatase 93 U/L (38-126); Anion Gap 6 mmol/L (8-16); Aspartate Amino Transferase 108 U/L (17-59); Bilirubin,Total 0.7 mg/dL (0.2-1.3); Blood Urea Nitrogen 16 mg/dL (9-20); Calcium 7.7 mg/dL (8.4-10.2); Carbon Dioxide 28 mmol/L (22-30); Chloride 106 mmol/L (98-107); Creatine Kinase 1376 U/L (55-170); Estimated CRCL calculation 77 ml/min; Estimated Glomerular Filt Rate > 60; Glucose 276 mg/dL (65-110); Magnesium 1.8 mg/dL (1.6-2.3); Potassium 3.3 mmol/L (3.4-5.0); Sodium 140 mmol/L (137-145)
[2022-06-30 08:00] VITALS: BP 104/59; PULSE 90; RESP 18; TEMP 36.8; O2SAT 94
[2022-06-30 08:38] LABS: Glucose Point of Care 239 mg/dl (65-105)
[2022-06-30] MEDS: INSULIN HUMAN ISOPHAN/REGULAR 70/30 (*BKC) 100 UNITS/ML 50 UNITS SUB-Q (09:11)
[2022-06-30] MEDS: lisinopriL 20 MG TABLET 40 MG PO (09:12)
[2022-06-30] MEDS: ENOXAPARIN 40 MG/0.4 ML SYRINGE SUB-Q (09:12)
[2022-06-30] MEDS: INSULIN ASPART (*BKC) 100 UNITS/ML SUB-Q ×2 (09:12→12:38)
[2022-06-30] MEDS: DULoxetine HCL 60 MG CAPSULE.DR PO (09:12)
[2022-06-30] MEDS: FAMOTIDINE 20 MG/2 ML VIAL IV PUSH ×2 (09:12→22:26)
[2022-06-30] MEDS: GABAPENTIN 300 MG CAPSULE 600 MG PO ×3 (09:13→18:33)
[2022-06-30 12:00] VITALS: BP 97/47; PULSE 89; RESP 18; TEMP 36.9; O2SAT 96
[2022-06-30 12:05] LABS: Glucose Point of Care 258 mg/dl (65-105)
[2022-06-30 16:00] VITALS: BP 145/78; PULSE 78; RESP 18; TEMP 37.2; O2SAT 97
[2022-06-30 17:14] LABS: Glucose Point of Care 144 mg/dl (65-105)
--- NOTE | 2022-06-30 18:07 | PM.IMPN ---
Progress Note: A&P Assessment and Plan (1) COVID: Code(s): U07.1 - COVID-19 Status: Acute Assessment and Plan: -the patient is on contact and droplet isolation. - conservative care with antipyretics. -the patient is currently on room air. -Simvastatin has been held due to the weakness And also elevated CK level. Patient not hypoxic. Continue to monitor for any worsening (2) RENETTA (acute kidney injury): Code(s): N17.9 - Acute kidney failure, unspecified Status: Acute Assessment and Plan: creatinine of 1.4 on admission. Baseline 1.1 flu was given back to baseline today. -Avoid any nephrotoxic medication - hydrochlorothiazide has been held -lisinopril has been held - metformin has been held. Also has rhabdomyolysis with CK elevated at 5000 (3) Weakness: Code(s): R53.1 - Weakness Status: Acute Assessment and Plan: Generalized weakness. Likely related to underlying COVID infection PT OT evaluation (4) Depression: Code(s): F32.A - Depression, unspecified Status: Acute Assessment and Plan: -continue with Cymbalta (5) Atrial fibrillation with rapid ventricular response: Code(s): I48.91 - Unspecified atrial fibrillation Status: Acute Assessment and Plan: AFib with RVR arrival. One dose of digoxin was given Heart rate better will continue home medication which include diltiazem 300 mg daily On anticoagulation at home likely recurrent falls (6) Type 2 diabetes mellitus with hyperglycemia, with long-term current use of insulin: Code(s): E11.65 - Type 2 diabetes mellitus with hyperglycemia; Z79.4 - long term (current) use of insulin Status: Acute Assessment and Plan: -Accu-Cheks AC and HS with sliding scale insulin and hypoglycemic protocol. A1c at 7.8 Hold metformin due to the acute kidney injury Restart 70 30 slightly lower dose than home doses (7) Benign essential hypertension: Code(s): I10 - Essential (primary) hypertension Status: Acute Assessment and Plan: Lisinopril is on hold at this time and hydrochlorothiazide due to the acute renal failure -p.r.n. hydralazine with parameters (8) Mixed hyperlipidemia: Code(s): E78.2 - Mixed hyperlipidemia Status: Acute Assessment and Plan: simvastatin is on hold at this time due to the weakness and rhabdomyolysis. (9) Gastro-esophageal reflux disease without esophagitis: Code(s): K21.9 - Gastro-esophageal reflux disease without esophagitis Status: Acute Assessment and Plan: continue with IV Pepcid. (10) Rhabdomyolysis: Code(s): M62.82 - Rhabdomyolysis Status: Acute Assessment and Plan: CK level elevated continue to improve. on ivf. lower the rate. recheck in am. Plan DVT prophylaxis on Lovenox Subjective Date/time seen: 06/30/22 18:07 Interval history: HPI:this is a 77-year-old male patient who resides with his .? The patient came by ambulance with complaints of weakness.? The patient is not able to answer most of the questions.? There is some questionable dementia.? The was here earlier and was answering questions.? The told the ER doctor that over last 6 months the patient has become more weaker and refuses to use a walker at home.? The patient fell yesterday while trying to walk it was not known if he? blacked out.? The patient denies any fever chills or any nausea vomiting or chest pain. ? he denies any dizziness.? The patient has not eat breakfast or taken any of his medications prior to arrival to the emergency department.? His H&H is 12.7 and 38.3.? his BUN is 24 creatinine is 1.4.? GFR is 49.? Glucose is 195.? last A1c was 7.2 on 01/06/2022.? ? The patient is negative for UTI.? The patient is negative for influenza a B and RSV.? The patient was positive for COVID.? The patient was given 2 L of IV fluids Cardizem and lisinopril.? Heart rate 122 a
[2022-06-30] MEDS: traMADol HCL (*CRX) 50 MG TABLET PO (18:34)
[2022-06-30 22:05] VITALS: O2SAT 99
[2022-06-30 22:31] LABS: Glucose Point of Care 193 mg/dl (65-105)
[2022-06-30 22:57] VITALS: BP 126/53; PULSE 90; RESP 18; TEMP 36.3; O2SAT 96
[2022-07-01 02:15] VITALS: BP 128/87; PULSE 96; RESP 16; TEMP 36.7; O2SAT 93
[2022-07-01 04:55] VITALS: BP 127/62; PULSE 99; RESP 18; TEMP 37.1; O2SAT 97
[2022-07-01 05:34] LABS: Basophils Percent Auto 0.2 % (0.2-1.2); Eosinophils Percent Auto 0.4 % (0-4.4); Hematocrit 33.8 % (42.0-52.0); Hemoglobin 11.1 g/dL (14.0-18.0); Immature Granulocyte Absolute 0.01 K/mm3 (0.00-0.031); Immature Granulocyte Percent A 0.2 % (0-0.5); Lymphocytes Absolute Auto 1.61 K/mm3 (0.9-3.2); Mean Corpuscular HGB Conc 32.8 g/dl (32-36); Mean Corpuscular Hemoglobin 28.8 pg (26-34); Mean Corpuscular Volume 87.8 fl (80-100); Mean Platelet Volume 10.4 fl (7.4-10.4); Monocytes Absolute Auto 0.6 K/mm3 (0.1-0.6); Monocytes Percent Auto 11.9 % (2.6-8.5); Neutrophils Absolute Auto 2.7 K/mm3 (1.3-6.7); Neutrophils Percent Auto 54.3 % (45.5-73.1); Platelet Count Result 193 k/mm3 (150-375); Red Blood Count 3.85 M/mm3 (4.6-6.20); Red Cell Distribution Width 12.5 % (11.5-14.5); White Blood Count 4.9 K/mm3 (4.5-10.0)
[2022-07-01 05:47] LABS: Alanine Aminotransferase 54 U/L (6-50); Albumin Level 3.4 g/dL (3.5-5.1); Alkaline Phosphatase 88 U/L (38-126); Anion Gap 5 mmol/L (8-16); Aspartate Amino Transferase 90 U/L (17-59); Bilirubin,Total 0.9 mg/dL (0.2-1.3); Blood Urea Nitrogen 15 mg/dL (9-20); Calcium 7.6 mg/dL (8.4-10.2); Carbon Dioxide 26 mmol/L (22-30); Chloride 103 mmol/L (98-107); Creatine Kinase 712 U/L (55-170); Estimated CRCL calculation 77 ml/min; Estimated Glomerular Filt Rate > 60; Glucose 206 mg/dL (65-110); Magnesium 1.7 mg/dL (1.6-2.3); Potassium 3.3 mmol/L (3.4-5.0); Sodium 134 mmol/L (137-145)
[2022-07-01 08:00] VITALS: BP 127/64; PULSE 94; RESP 18; TEMP 37.3; O2SAT 93
[2022-07-01 08:22] LABS: Glucose Point of Care 239 mg/dl (65-105)
[2022-07-01] MEDS: ENOXAPARIN 40 MG/0.4 ML SYRINGE SUB-Q (08:40)
[2022-07-01] MEDS: lisinopriL 20 MG TABLET 40 MG PO (08:40)
[2022-07-01] MEDS: DULoxetine HCL 60 MG CAPSULE.DR PO (08:40)
[2022-07-01] MEDS: GABAPENTIN 300 MG CAPSULE 600 MG PO ×3 (08:40→16:12)
[2022-07-01] MEDS: FAMOTIDINE 20 MG/2 ML VIAL IV PUSH ×2 (08:40→21:24)
[2022-07-01] MEDS: INSULIN ASPART (*BKC) 100 UNITS/ML SUB-Q ×2 (08:41→12:21)
[2022-07-01] MEDS: INSULIN HUMAN ISOPHAN/REGULAR 70/30 (*BKC) 100 UNITS/ML 50 UNITS SUB-Q (08:47)
--- NOTE | 2022-07-01 10:05 | PCOTNOTE ---
Attempted to see patient this am, however patient refused all functional OT activities at this time.
[2022-07-01] MEDS: traMADol HCL (*CRX) 50 MG TABLET PO (11:21)
[2022-07-01 11:54] LABS: Glucose Point of Care 269 mg/dl (65-105)
[2022-07-01 12:00] VITALS: BP 136/64; PULSE 92; RESP 18; TEMP 36.8; O2SAT 97
[2022-07-01] MEDS: SODIUM CHLORIDE 0.9% IV 1,000 ML 75 ML IV CONT (12:22)
--- NOTE | 2022-07-01 12:46 | PM.IMPN ---
Progress Note: A&P Assessment and Plan (1) Rhabdomyolysis: Code(s): M62.82 - Rhabdomyolysis Status: Acute (2) COVID: Code(s): U07.1 - COVID-19 Status: Acute (3) Atrial fibrillation with rapid ventricular response: Code(s): I48.91 - Unspecified atrial fibrillation Status: Acute (4) Type 2 diabetes mellitus with hyperglycemia, with long-term current use of insulin: Code(s): E11.65 - Type 2 diabetes mellitus with hyperglycemia; Z79.4 - nursing home (current) use of insulin Status: Acute (5) Gastro-esophageal reflux disease without esophagitis: Code(s): K21.9 - Gastro-esophageal reflux disease without esophagitis Status: Acute (6) Benign essential hypertension: Code(s): I10 - Essential (primary) hypertension Status: Acute Plan COVID positive conservative management. No signs of hypoxia or fever. Rhabdomyolysis CPK trending downward Statin on hold Lisinopril on hold. Metformin on hold. And gentle hydration. Avoid nephrotoxic drugs. Monitor antihypertensive drugs On Cardizem and digoxin Avoid NSAIDs. Routine CMP monitor GFR. Monitor electrolytes potassium levels. Potassium 3.3 Dose antibiotics depending on creatinine clearance Routine follow-up with PCP and district manager postal service recommended Pain his last hemoglobin A1c 7.8. Continue sliding scale. Restart 70 30. Monitor blood pressure. Using hydralazine to control blood pressure Plan to restart BP meds once CPK is back to normal Subjective Date/time seen: 07/01/22 12:46 Interval history: No new complaint still complains of weakness Exam Const: Other: GENERAL: Well appearing, well-nourished, non-toxic, in no acute distress. HEAD: Normocephalic, atraumatic. NECK: Supple. No adenopathy, no masses. RESPIRATORY: Airway patent, respirations nonlabored. Clear to auscultation bilaterally, no rales, rhonchi, wheezing. CARDIOVASCULAR: Regular rate and rhythm without murmurs, rubs, or gallops. Peripheral pulses 2+ and equal bilaterally. ABDOMINAL: Soft, nontender, nondistended, no hepatosplenomegaly. Normoactive BS. MUSCULOSKELETAL: no Epigastric and no hypochondrial tenderness SKIN: Warm, dry, normal color. No rashes. NEURO: A&O X3. Moves all extremities PSYCHIATRIC: Appropriate mood and affect. Normal interaction. Objective Data Vital Signs Vital Signs: Vital Signs - 24 hr 06/30/22 16:00 06/30/22 22:57 07/01/22 02:15 Temperature 37.2 C 36.3 C L 36.7 C Pulse Rate 78 90 96 Respiratory Rate 18 18 16 Blood Pressure 145/78 H 126/53 L 128/87 Pulse Oximetry 97 96 93 Oxygen Delivery 06/30/22 22:05 07/01/22 04:55 07/01/22 08:00 Temperature 37.1 C 37.3 C Pulse Rate 99 94 Respiratory Rate 18 18 Blood Pressure 127/62 127/64 Pulse Oximetry 99 97 93 Oxygen Delivery Room Air 07/01/22 08:45 07/01/22 12:00 Temperature 36.8 C Pulse Rate 92 Respiratory Rate 18 Blood Pressure 136/64 Pulse Oximetry 97 Oxygen Delivery Room Air Intake/Output Intake/Output: Intake & Output 06/28/22 06/29/22 06/30/22 07/01/22 23:59 23:59 23:59 23:59 Intake Total 1960 2510 4720 1740 Output Total 6709 956 7194 900 Balance 910 2009 2870 840 Meds/Results Medications: Active Medications Generic Name Dose Route Start Last Admin Trade Name Freq PRN Reason Stop Dose Admin Acetaminophen 650 mg 06/27/22 10:00 Acetaminophen 325 Mg Tablet PO Q4H PRN Mild Pain (1-3) or Fever Dextrose 12.5 gm 06/27/22 15:11 Dextrose 50% 25 Gm/50 Ml Syringe IV PUSH PRN PRN Hypoglycemia Protocol Diltiazem HCl 240 mg 06/28/22 09:00 07/01/22 08:40 Diltiazem Hcl Cd 240 Mg Cap.Er.24h PO 240 mg DAILY BA Administration Duloxetine HCl 60 mg 06/28/22 09:00 07/01/22 08:40 Duloxetine Hcl 60 Mg Capsule.Dr PO 60 mg DAILY BA Administration Enoxaparin Sodium 40 mg 06/28/22 09:00 07/01/22 08:40 Enoxaparin 40 Mg/0.4 Ml Syringe SUB-Q 4
[2022-07-01 16:00] VITALS: BP 154/78; PULSE 76; RESP 18; TEMP 36.9; O2SAT 96
[2022-07-01 16:39] LABS: Glucose Point of Care 199 mg/dl (65-105)
[2022-07-01] MEDS: INSULIN HUMAN ISOPHAN/REGULAR 70/30 (*BKC) 100 UNITS/ML 30 UNITS SUB-Q (17:21)
[2022-07-01 20:00] VITALS: BP 138/64; PULSE 96; RESP 16; TEMP 36.7; O2SAT 94
[2022-07-01 20:55] LABS: Glucose Point of Care 218 mg/dl (65-105)
[2022-07-02 00:45] VITALS: BP 138/71; PULSE 98; RESP 21; TEMP 37.2; O2SAT 100
[2022-07-02] MEDS: traMADol HCL (*CRX) 50 MG TABLET PO (01:48)
[2022-07-02 04:59] LABS: Hematocrit 33.6 % (42.0-52.0); Mean Corpuscular HGB Conc 32.7 g/dl (32-36); Mean Corpuscular Hemoglobin 28.8 pg (26-34); Mean Platelet Volume 10.2 fl (7.4-10.4); Platelet Count Result 183 k/mm3 (150-375); Red Blood Count 3.82 M/mm3 (4.6-6.20); Red Cell Distribution Width 12.3 % (11.5-14.5); White Blood Count 6.3 K/mm3 (4.5-10.0)
[2022-07-02 05:00] VITALS: BP 131/53; PULSE 95; RESP 18; TEMP 36.5; O2SAT 95
[2022-07-02 05:21] LABS: Alanine Aminotransferase 44 U/L (6-50); Albumin Level 3.2 g/dL (3.5-5.1); Alkaline Phosphatase 73 U/L (38-126); Anion Gap 6 mmol/L (8-16); Aspartate Amino Transferase 61 U/L (17-59); Bilirubin,Total 1.1 mg/dL (0.2-1.3); Blood Urea Nitrogen 14 mg/dL (9-20); Calcium 7.2 mg/dL (8.4-10.2); Carbon Dioxide 24 mmol/L (22-30); Chloride 107 mmol/L (98-107); Creatine Kinase 343 U/L (55-170); Estimated CRCL calculation 85 ml/min; Estimated Glomerular Filt Rate > 60; Glucose 145 mg/dL (65-110); Potassium 3.3 mmol/L (3.4-5.0); Sodium 137 mmol/L (137-145)
[2022-07-02 08:00] VITALS: BP 133/66; PULSE 90; RESP 18; TEMP 37; O2SAT 96
[2022-07-02 09:09] LABS: Glucose Point of Care 216 mg/dl (65-105)
[2022-07-02] MEDS: INSULIN ASPART (*BKC) 100 UNITS/ML SUB-Q ×3 (09:21→17:00)
[2022-07-02] MEDS: lisinopriL 20 MG TABLET 40 MG PO (09:21)
[2022-07-02] MEDS: ENOXAPARIN 40 MG/0.4 ML SYRINGE SUB-Q (09:21)
[2022-07-02] MEDS: FAMOTIDINE 20 MG/2 ML VIAL IV PUSH ×2 (09:21→20:09)
[2022-07-02] MEDS: DULoxetine HCL 60 MG CAPSULE.DR PO (09:21)
[2022-07-02] MEDS: GABAPENTIN 300 MG CAPSULE 600 MG PO ×3 (09:21→16:59)
[2022-07-02] MEDS: INSULIN HUMAN ISOPHAN/REGULAR 70/30 (*BKC) 100 UNITS/ML 50 UNITS SUB-Q (09:22)
--- NOTE | 2022-07-02 10:53 | PM.IMPN ---
Progress Note: A&P Assessment and Plan (1) Rhabdomyolysis: Code(s): M62.82 - Rhabdomyolysis Status: Acute (2) COVID: Code(s): U07.1 - COVID-19 Status: Acute (3) Atrial fibrillation with rapid ventricular response: Code(s): I48.91 - Unspecified atrial fibrillation Status: Acute (4) Type 2 diabetes mellitus with hyperglycemia, with long-term current use of insulin: Code(s): E11.65 - Type 2 diabetes mellitus with hyperglycemia; Z79.4 - [facility] (current) use of insulin Status: Acute (5) Gastro-esophageal reflux disease without esophagitis: Code(s): K21.9 - Gastro-esophageal reflux disease without esophagitis Status: Acute (6) Benign essential hypertension: Code(s): I10 - Essential (primary) hypertension Status: Acute Plan COVID positive conservative management. No signs of hypoxia or fever. Rhabdomyolysis CPK trending downward Statin on hold Lisinopril on hold. Metformin on hold. And gentle hydration. Avoid nephrotoxic drugs. Monitor antihypertensive drugs On Cardizem and digoxin Avoid NSAIDs. Routine CMP monitor GFR. Monitor electrolytes potassium levels. Potassium 3.3 Dose antibiotics depending on creatinine clearance Routine follow-up with PCP and registered clinical dietitian recommended hemoglobin A1c . Continue sliding scale. Restart 70 30. Monitor blood pressure. Using hydralazine to control blood pressure Plan to restart BP meds once CPK is back to normal Social service consult Subjective Date/time seen: 07/02/22 10:53 Interval history: No new complaints Exam Narrative: GENERAL: Well appearing, well-nourished, non-toxic, in no acute distress. HEAD: Normocephalic, atraumatic. NECK: Supple. No adenopathy, no masses. RESPIRATORY: Airway patent, respirations nonlabored. Clear to auscultation bilaterally, no rales, rhonchi, wheezing. CARDIOVASCULAR: Regular rate and rhythm without murmurs, rubs, or gallops. Peripheral pulses 2+ and equal bilaterally. ABDOMINAL: Soft, nontender, nondistended, no hepatosplenomegaly. Normoactive BS. MUSCULOSKELETAL: no Epigastric and no hypochondrial tenderness SKIN: Warm, dry, normal color. No rashes. NEURO: A&O X3. Moves all extremities PSYCHIATRIC: Appropriate mood and affect. Normal interaction. Objective Data Vital Signs Vital Signs: Vital Signs - 24 hr 07/01/22 12:00 07/01/22 16:00 07/01/22 20:00 Temperature 36.8 C 36.9 C 36.7 C Pulse Rate 92 76 96 Respiratory Rate 18 18 16 Blood Pressure 136/64 154/78 H 138/64 Pulse Oximetry 97 96 94 07/02/22 00:45 07/02/22 05:00 07/02/22 08:00 Temperature 37.2 C 36.5 C 37.0 C Pulse Rate 98 95 90 Respiratory Rate 21 H 18 18 Blood Pressure 138/71 131/53 L 133/66 Pulse Oximetry 100 95 96 Intake/Output Intake/Output: Intake & Output 06/29/22 06/30/22 07/01/22 07/02/22 23:59 23:59 23:59 23:59 Intake Total 2510 4720 2750 440 Output Total 500 1850 1200 800 Balance 2010 2870 1550 -360 Meds/Results Medications: Active Medications Generic Name Dose Route Start Last Admin Trade Name Freq PRN Reason Stop Dose Admin Acetaminophen 650 mg 06/27/22 10:00 Acetaminophen 325 Mg Tablet PO Q4H PRN Mild Pain (1-3) or Fever Dextrose 12.5 gm 06/27/22 15:11 Dextrose 50% 25 Gm/50 Ml Syringe IV PUSH PRN PRN Hypoglycemia Protocol Diltiazem HCl 240 mg 06/28/22 09:00 07/02/22 09:21 Diltiazem Hcl Cd 240 Mg Cap.Er.24h PO 240 mg DAILY BA Administration Duloxetine HCl 60 mg 06/28/22 09:00 07/02/22 09:21 Duloxetine Hcl 60 Mg Capsule.Dr PO 60 mg DAILY BA Administration Enoxaparin Sodium 40 mg 06/28/22 09:00 07/02/22 09:21 Enoxaparin 40 Mg/0.4 Ml Syringe SUB-Q 40 mg DAILY BA Administration Famotidine 20 mg 06/27/22 21:00 07/02/22 09:21 Famotidine 20 Mg/2 Ml Vial IV PUSH 20 mg Q12HR BA Administration Gabapentin 600 mg 06/27/22 17:00 07/02/22 09:21 Ga
[2022-07-02 11:50] LABS: Glucose Point of Care 355 mg/dl (65-105)
[2022-07-02 12:00] VITALS: BP 149/58; PULSE 92; RESP 18; TEMP 36.5; O2SAT 97
[2022-07-02] MEDS: POTASSIUM CHLORIDE 20 MEQ TABLET.ER 40 MEQ PO (12:16)
[2022-07-02 16:00] VITALS: BP 149/56; PULSE 77; RESP 18; TEMP 36.2; O2SAT 95
[2022-07-02 16:51] LABS: Glucose Point of Care 249 mg/dl (65-105)
[2022-07-02] MEDS: INSULIN HUMAN ISOPHAN/REGULAR 70/30 (*BKC) 100 UNITS/ML 30 UNITS SUB-Q (17:00)
[2022-07-02 20:00] VITALS: BP 142/63; PULSE 97; RESP 18; TEMP 36.3; O2SAT 96
[2022-07-03 06:00] VITALS: BP 126/72; PULSE 60; RESP 18; TEMP 36.6; O2SAT 97
[2022-07-03 06:58] LABS: Hematocrit 34.2 % (42.0-52.0); Hemoglobin 11.6 g/dL (14.0-18.0); Mean Corpuscular HGB Conc 33.9 g/dl (32-36); Mean Corpuscular Hemoglobin 29.5 pg (26-34); Mean Platelet Volume 10.7 fl (7.4-10.4); Platelet Count Result 211 k/mm3 (150-375); Red Blood Count 3.93 M/mm3 (4.6-6.20); Red Cell Distribution Width 12.2 % (11.5-14.5); White Blood Count 9.2 K/mm3 (4.5-10.0)
[2022-07-03 07:08] LABS: Alanine Aminotransferase 40 U/L (6-50); Albumin Level 3.2 g/dL (3.5-5.1); Alkaline Phosphatase 89 U/L (38-126); Anion Gap 7 mmol/L (8-16); Aspartate Amino Transferase 40 U/L (17-59); Bilirubin,Total 1.1 mg/dL (0.2-1.3); Blood Urea Nitrogen 14 mg/dL (9-20); Calcium 7.8 mg/dL (8.4-10.2); Carbon Dioxide 26 mmol/L (22-30); Chloride 106 mmol/L (98-107); Estimated CRCL calculation 76 ml/min; Estimated Glomerular Filt Rate > 60; Glucose 154 mg/dL (65-110); Potassium 3.3 mmol/L (3.4-5.0); Sodium 139 mmol/L (137-145)
[2022-07-03 08:39] LABS: Glucose Point of Care 193 mg/dl (65-105)
[2022-07-03] MEDS: POTASSIUM CHLORIDE 20 MEQ TABLET.ER 40 MEQ PO (08:53)
[2022-07-03] MEDS: DULoxetine HCL 60 MG CAPSULE.DR PO (08:55)
[2022-07-03] MEDS: ENOXAPARIN 40 MG/0.4 ML SYRINGE SUB-Q (08:57)
[2022-07-03] MEDS: lisinopriL 20 MG TABLET 40 MG PO (08:58)
[2022-07-03] MEDS: GABAPENTIN 300 MG CAPSULE 600 MG PO ×2 (08:58→12:32)
[2022-07-03] MEDS: FAMOTIDINE 20 MG/2 ML VIAL IV PUSH (08:58)
[2022-07-03] MEDS: INSULIN HUMAN ISOPHAN/REGULAR 70/30 (*BKC) 100 UNITS/ML 50 UNITS SUB-Q (09:00)
[2022-07-03 09:10] VITALS: BP 138/93; PULSE 94
--- NOTE | 2022-07-03 11:35 | PM.DS ---
DS: Admitting Diagnosis Discharge Date July 03, 2022 Admitting Diagnosis COVID DS: Discharge Diagnosis Discharge Diagnosis (1) Rhabdomyolysis: Code(s): M62.82 - Rhabdomyolysis Status: Acute (2) RENETTA (acute kidney injury): Code(s): N17.9 - Acute kidney failure, unspecified Status: Acute (3) Atrial fibrillation with rapid ventricular response: Code(s): I48.91 - Unspecified atrial fibrillation Status: Acute (4) Type 2 diabetes mellitus with hyperglycemia, with long-term current use of insulin: Code(s): E11.65 - Type 2 diabetes mellitus with hyperglycemia; Z79.4 - exterminator helper (current) use of insulin Status: Acute (5) COVID: Code(s): U07.1 - COVID-19 Status: Acute DS: Summary Hospital Course Hospital Course: this is a 77-year-old male patient who resides with his .? The patient came by ambulance with complaints of weakness.? The patient is not able to answer most of the questions.? There is some questionable dementia.? The was here earlier and was answering questions.? The told the ER doctor that over last 6 months the patient has become more weaker and refuses to use a walker at home.? The patient fell yesterday while trying to walk it was not known if he? blacked out.? The patient denies any fever chills or any nausea vomiting or chest pain. ? he denies any dizziness.? The patient has not eat breakfast or taken any of his medications prior to arrival to the emergency department.? His H&H is 12.7 and 38.3.? his BUN is 24 creatinine is 1.4.? GFR is 49.? Glucose is 195.? last A1c was 7.2 on 01/06/2022.? ? The patient is negative for UTI.? The patient is negative for influenza a B and RSV.? The patient was positive for COVID. Patient was started on 2 L of IV fluids because of his high heart rate was started on Cardizem. Patient had CPK of 5000 diagnosis of rhabdomyolysis treated with IV hydration fluid. Nephrology was consulted patient's hemoglobin A1c is 7.0 will hold lisinopril and metformin. Continue monitor with primary care physician and Nephrology as an outpatient. Patient going home on home medication plus home health PT OT patient CK levels are back to normal Time Spent with Patient Time attestation: Total time spent providing and/or coordinating discharge services: Exam Narrative: GENERAL: Well appearing, well-nourished, non-toxic, in no acute distress. HEAD: Normocephalic, atraumatic. NECK: Supple. No adenopathy, no masses. RESPIRATORY: Airway patent, respirations nonlabored. Clear to auscultation bilaterally, no rales, rhonchi, wheezing. CARDIOVASCULAR: Regular rate and rhythm without murmurs, rubs, or gallops. Peripheral pulses 2+ and equal bilaterally. ABDOMINAL: Soft, nontender, nondistended, no hepatosplenomegaly. Normoactive BS. MUSCULOSKELETAL: no Epigastric and no hypochondrial tenderness SKIN: Warm, dry, normal color. No rashes. NEURO: A&O X3. Moves all extremities PSYCHIATRIC: Appropriate mood and affect. Normal interaction. DS: Data Data Completed and Pending Labs on day of discharge: Labs from last 24 hours 07/03/22 07/03/22 07/03/22 08:29 05:54 05:54 WBC 9.2 RBC 3.93 L Hgb 11.6 L Hct 34.2 L MCV 87.0 MCH 29.5 MCHC 33.9 RDW 12.2 Plt Count 211 MPV 10.7 H Sodium 139 Potassium 3.3 L Chloride 106 Carbon Dioxide 26 Anion Gap 7 L BUN 14 Creatinine 1.00 Estim Creat Clear Calc 76 Estimated GFR > 60 Glucose 154 H POC Capillary Glucose 193 H Calcium 7.8 L Total Bilirubin 1.1 AST 40 ALT 40 Alkaline Phosphatase 89 Total Protein 6.0 L Albumin 3.2 L 07/02/22 07/02/22 16:46 11:38 WBC RBC Hgb Hct MCV MCH MCHC RDW Plt Count MPV Sodium Potassium Chloride Carbon Dioxide Anion Gap BUN Creatinine Estim Creat Clear Calc Estimated GFR Glucose POC Capillary Glucose 249 H 355 H Calcium
[2022-07-03 12:00] VITALS: BP 125/58; PULSE 67; RESP 16; TEMP 36.7; O2SAT 95
[2022-07-03 12:16] LABS: Glucose Point of Care 229 mg/dl (65-105)
[2022-07-03] MEDS: INSULIN ASPART (*BKC) 100 UNITS/ML SUB-Q (12:32)
[2022-07-03 16:00] VITALS: BP 120/59; PULSE 82; RESP 18; TEMP 36.2; O2SAT 96
[2022-07-03 16:29] LABS: Glucose Point of Care 235 mg/dl (65-105)
== END 2022-07-03 17:28 | DRG 178 ==
LOC: ANHED 09:59 → ANH2MED 10:44
PROVIDERS: Internal Medicine; Nurse Practitioner; Admitting Provider Chiropractor; Emergency Provider Emergency Medicine; PCP Family Medicine; Visit Provider Internal Medicine
DX: U07.1 COVID-19 (principal); M62.82 Rhabdomyolysis; N17.9 Acute kidney failure, unspecified; M17.0 Bilateral primary osteoarthritis of knee; E11.65 Type 2 diabetes mellitus with hyperglycemia; E11.319 Type 2 diabetes mellitus with unspecified diabetic retinopathy without macular edema; E11.42 Type 2 diabetes mellitus with diabetic polyneuropathy; E78.5 Hyperlipidemia, unspecified; F32.A Depression, unspecified; G47.33 Obstructive sleep apnea (adult) (pediatric); I48.91 Unspecified atrial fibrillation; I10 Essential (primary) hypertension; H35.30 Unspecified macular degeneration; K21.9 Gastro-esophageal reflux disease without esophagitis; Z88.0 Allergy status to penicillin; Z90.49 Acquired absence of other specified parts of digestive tract; Z87.891 Personal history of nicotine dependence; Z93.3 Colostomy status; Z79.4 Long term (current) use of insulin; Z79.84 Long term (current) use of oral hypoglycemic drugs; Z91.81 History of falling
CPT/HCPCS: 36415; 51701; 71046; 80048; 80053; 81001; 82550; 82948; 83036; 83605; 83615; 83735; 84100; 84439; 84443; 84480; 85025; 85027; 87040; 87637; 93005; 96361; 96372; 96374; 96375; 96376; 97110; 97162; 97165; 97530; 99285; A9270; G0378; J0360; J1160; J1650; J1815; J7030

== ENCOUNTER 2022-07-15 10:57 | Inpatient (IN) | payer MEDICARE, SELFPAY ==
[2022-07-15] VITALS (25 sets, daily range): BP systolic 72–136; BP diastolic 33–63; PULSE 28–100; RESP 16–24; TEMP 35–37.1; O2SAT 89–99; BMI 35.9
--- NOTE | ~2022-07-15 | CT_ITS ---
EXAMINATION: CT brain wo con INDICATION: Altered mental status COMPARISON: 11/03/2011 TECHNIQUE: Standard unenhanced head CT. The dose-length product (DLP) was 681.00 mGy-cm. The mA was a djusted according to patient size. Iterative reconstruction technique was employed. FINDINGS: Motion artifact slightly limits the examination. There is no acute intraparenchymal hemorrh age. No evidence of mass lesion. No evidence of acute infarction. There is mild periventricular and s ubcortical hypodensity probably related to small vessel ischemic disease. There is mild prominence of the sulci and ventricles related to cerebral atrophy. Intracranial calcified cerebral atherosclerosi s is noted. There are no extra-axial collections. There is no mass effect or midline shift. Changes i n the globes are likely from ocular lens surgery. The visualized sinuses and mastoid air cells are we ll aerated. IMPRESSION: 1. No acute intracranial abnormality, evaluation slightly limited by motion artifact.. 2. Age related findings. Reviewed, dictated and finalized at location B. ETING PROPOSAL SPECIALIST IMPRESSION: 1. No acute intracranial abnormality, evaluation slightly limited by motion art ifact.. 2. Age related findings.
--- NOTE | ~2022-07-15 | XR_ITS ---
EXAMINATION: XR chest 1V portable INDICATION: Cough and weakness TECHNIQUE: Portable AP chest at 1211 hours COMPARISON: 06/27/2022 FINDINGS: The lung volumes are low. The lungs are free of acute opacities. No pleural effusion or pne umothorax. The cardiomediastinal silhouette is normal. There is partially imaged cervical fusion hard osman. IMPRESSION: 1. No acute cardiopulmonary abnormality. Reviewed, dictated and finalized at location B. CIATE PROFESSOR OF EDUCATION
--- NOTE | ~2022-07-15 | CT_ITS ---
EXAMINATION: CT abdomen pelvis wo con DATE: 07/15/2022 12:47 INDICATION: abd pain TECHNIQUE: Computed tomography (CT) of the abdomen and pelvis was performed without intravenous contr ast. Automated exposure control and iterative reconstruction technique were employed. The dose-length product was 1584.26 mGy-cm. COMPARISON: 05/01/2020. FINDINGS: Exam limited by motion artifact and beam hardening from arm position. Lower thorax: Dependent atelectasis and ill-defined groundglass opacities. Coronary artery calcificat ion. Anemia. Mild ascending aortic ectasia and valve calcification. Liver: Diffuse fatty infiltration. Biliary/Gallbladder: Gallbladder is absent. No bile duct dilation. Pancreas: Atrophy. Stable pancreatic tail cyst. Spleen: Normal. Adrenals:No mass. Kidneys: Moderate bilateral perinephric stranding. Simple left upper and mid pole cysts. GI tract: Status post colectomy and right lower quadrant ostomy. Herniation of mesenteric fat at the ostomy. No small bowel dilation. Mesentery/Peritoneum: No ascites, mass, or free air. Retroperitoneum: No mass. Atherosclerotic abdominal aortic and/or arterial calcifications. Pelvis: The bladder is decompressed by a Ross catheter. Marked bladder wall thickening. Soft Tissues: Surgical changes in the anterior abdominal wall, small uncomplicated fat-containing umb ilical hernia, mild rectus diastases. Bones: No acute osseous finding. IMPRESSION: Limited exam, as detailed above. Bilateral dependent lung opacities may represent atelectasis or infe ction, possibly with a component of aspiration. Steatosis. Bladder wall thickening may be related to inadequate distention or cystitis. Reviewed, dictated and finalized at location K. ON BRUSHER ASSEMBLER IMPRESSION: Limited exam, as detailed above. Bilateral dependent lung opacities may represe nt atelectasis or infection, possibly with a component of aspiration. Steatosis . Bladder wall thickening may be related to inadequate distention or cystitis.
--- NOTE | ~2022-07-15 | XR_ITS ---
Portable upright view of the abdomen Clinical history: NG tube placement Findings: NG tube is in satisfactory position. There are probable mildly dilated small bowel loops, r aising possibility of bowel obstruction. No free air evident. No abnormal mass lesion or calcificatio n is seen. Osseous structures are intact. Impression: NG tube in place. Questionable small bowel obstruction. Reviewed, dictated and finalized at location . [employer] Impression: NG tube in place. Questionable small bowel obstruction.
[2022-07-15] MEDS: SODIUM CHLORIDE 0.9% IV 1,000 ML 999 ML IV CONT ×3 (10:54→13:08)
--- NOTE | 2022-07-15 10:58 | ECG_ITS ---
Rate 102 FL 278 QRSd 186 QT 425 QTc 555 --[place]-- P -57 QRS -75 T 70 POSSIBLE ECTOPIC ATRIAL TACHYCARDIA WITH FIRST DEGREE AV BLOCK RIGHT BUNDLE BRANCH BLOCK Electronically Signed On 07-15-2022 15:02:11 LAB NURSE by Servando SLADE
[2022-07-15 11:21] LABS: Basophils Absolute Auto 0.1 K/mm3 (0.0-0.1); Basophils Percent Auto 0.2 % (0.2-1.2); Hemoglobin 14.6 g/dL (14.0-18.0); Immature Granulocyte Percent A 1.1 % (0-0.5); Lymphocytes Absolute Auto 2.94 K/mm3 (0.9-3.2); Lymphocytes Percent Auto 10.6 % (18.3-44.2); Mean Corpuscular HGB Conc 29.8 g/dl (32-36); Mean Corpuscular Volume 97.2 fl (80-100); Mean Platelet Volume 10.6 fl (7.4-10.4); Monocytes Absolute Auto 1.6 K/mm3 (0.1-0.6); Monocytes Percent Auto 5.9 % (2.6-8.5); Neutrophils Absolute Auto 22.8 K/mm3 (1.3-6.7); Neutrophils Percent Auto 82.2 % (45.5-73.1); Platelet Count Result 807 k/mm3 (150-375); Red Blood Count 5.04 M/mm3 (4.6-6.20); Red Cell Distribution Width 13.2 % (11.5-14.5); White Blood Count 27.8 K/mm3 (4.5-10.0)
--- NOTE | 2022-07-15 11:26 | ED.GENADULT ---
HPI - General Adult General Chief complaint: Weakness Stated complaint: unknown Time Seen by Provider: 07/15/22 10:58 Source: family, EMS and RN notes reviewed History of Present Illness HPI narrative: Patient presents emergency department from [facility] via EMS for altered mental status. Patient was unable to give any medical history secondary to altered mental status per EMS the patient is normally awake and alert x3 and has been more altered today per the patient's that is present the patient recently was admitted to the hospital for COVID and had been discharged back to the halfway for rehab following COVID secondary to weakness states the patient is usually more awake and alert states that he was diagnosed with a UTI yesterday and started on Cipro Related Data Home Medications Medication Instructions Recorded Confirmed acetaminophen 650 mg 1,300 mg PO BID PRN Pain (Scale 05/01/20 07/15/22 tablet,extended release Score 1-3) tramadol 50 mg tablet 50 mg PO Q6H PRN Pain (Scale Score 06/27/22 07/15/22 4-6) triamcinolone acetonide 0.1 % 1 applic topical Q12H 06/27/22 07/15/22 topical cream bisacodyl 10 mg rectal suppository 10 mg RECTAL DAILY PRN Constipation 07/15/22 07/15/22 ciprofloxacin HCl 250 mg tablet 250 mg PO Q12H 07/15/22 07/15/22 diltiazem HCl 240 mg 240 mg PO DAILY 07/15/22 07/15/22 tablet,extended release 24 hr duloxetine 60 mg capsule,delayed 60 mg PO DAILY 07/15/22 07/15/22 release gabapentin 600 mg tablet 600 mg PO TID 07/15/22 07/15/22 hydrochlorothiazide 12.5 mg tablet 12.5 mg PO DAILY 07/15/22 07/15/22 insulin NPH-regular 70-30 U-100 40 unit subcut BIDWM 07/15/22 07/15/22 insulin 100 unit/mL subcutaneous pen (Humulin 70/30 U-100 KwikPen) insulin glargine 100 unit/mL (3 40 unit subcut DAILY 07/15/22 07/15/22 mL) subcutaneous pen (Lantus Solostar U-100 Insulin) lisinopril 40 mg tablet 40 mg PO DAILY 07/15/22 07/15/22 magnesium citrate (Citroma oral 300 ml PO DAILY PRN Constipation 07/15/22 07/15/22 solution) magnesium hydroxide 400 mg/5 mL 30 ml PO HS PRN Constipation 07/15/22 07/15/22 oral suspension (Milk of Magnesia) metformin 1,000 mg tablet 1,000 mg PO BID 07/15/22 07/15/22 simvastatin 40 mg tablet 20 mg PO HS 07/15/22 07/15/22 sodium phosphates 19 gram-7 118 ml RECTAL ONCE PRN Constipation 07/15/22 07/15/22 gram/118 mL enema (Fleet Enema) Allergies Allergy/AdvReac Type Severity Reaction Status Date / Time bee pollen Allergy Intermediate anaphylaxis Verified 04/16/22 14:23 reaction Penicillins Allergy Unknown breaks out Verified 04/16/22 14:23 in hives Review of Systems Review of Systems: ROS unobtainable: Yes unobtainable due to medical condition (Unable to obtain secondary to altered mental status) PMFSH Past Medical History Medical History Abrasion of right lower extremity Amputated finger tip of left index finger 1991 Arthritis Back pain Chronic venous stasis COVID Degenerative arthritis of knee, bilateral Depression Diabetic retinopathy Gastro-esophageal reflux disease without esophagitis Hand abrasion History of diverticulitis Hypercalcemia Hypertension Macular degeneration Mixed hyperlipidemia Neuropathy Obstructive sleep apnea (adult) (pediatric) Rhabdomyolysis Scalp abrasion Tubular adenoma of colon removed 2-21 Type 2 diabetes mellitus with hyperglycemia, with long-term current use of insulin Surgical History Surgical History H/O cataract extraction History of appendectomy History of cervical spinal surgery History of ileostomy 01/08/21 History of lumbar fusion History of tonsillectomy Hx of cholecystectomy 01/08/21 Hx of total colectomy 2020 S/P hernia surgery S/P ORIF (open reduction internal fixation) fracture right shoulder S/P rotator cuff repair left shoulder Family History Family History (Reviewed
[2022-07-15 11:44] LABS: INR 1.7; Partial Thromboplastin Time 41.1 SECONDS (22.3-36.8); Prothrombin Time 18.9 Seconds (11.1-14.7)
[2022-07-15 11:45] LABS: Albumin Level 4.5 g/dL (3.5-5.1); Alkaline Phosphatase 138 U/L (38-126); Aspartate Amino Transferase 79 U/L (17-59); Bilirubin,Total 0.6 mg/dL (0.2-1.3); Blood Urea Nitrogen 119 mg/dL (9-20); Calcium 8.8 mg/dL (8.4-10.2); Carbon Dioxide < 5 mmol/L (22-30); Chloride 95 mmol/L (98-107); Glucose 166 mg/dL (65-110); Lipase 1202 U/L (23-300); Magnesium 3.2 mg/dL (1.6-2.3); Potassium 6.4 mmol/L (3.4-5.0); Sodium 141 mmol/L (137-145)
[2022-07-15 11:52] LABS: Alanine Aminotransferase 52 U/L (6-50); Estimated Glomerular Filt Rate 3
[2022-07-15 11:54] LABS: Alveolar/Arterial O2 Gradient 47.8 mmHg; Base Excess ABG -34.6 mEq/l (+/-2.0); Carboxyhemoglobin 0.7 % THb (0-2.0); Fractional Inspired Oxygen 21 %; HCO3 ABG 2.8 mEq/l (22.0-26.0); Methemoglobin ABG 0.8 %THb (0-1.5); Oxygen Content ABG 15.3 %vol (16.0-22.0); PCO2 ABG 26.7 mmHg (35.0-45.0); PO2 FiO2 Ratio Arterial Blood 3.33 %; Reduced Hemoglobin 21.6 %THb (0-5.0); Total Hemoglobin 14.1 g/dL (12.0-18.0)
[2022-07-15 11:56] LABS: Oxygen Saturation ABG 64.5 % (95.0-100.0); Oxyhemoglobin 76.9 % THb (90.0-100.0); Site Drawn RIGHT BRACHIAL
[2022-07-15 12:01] LABS: Lactic Acid Reflex 17.6 mmol/L (0.7-2.0)
[2022-07-15] MEDS: CALCIUM GLUCONATE 1,000 MG/10 ML VIAL 1000 MG IV PUSH (12:01)
[2022-07-15] MEDS: INSULIN HUMAN REGULAR (*BKC) 100 UNITS/ML 10 UNITS IV PUSH (12:01)
[2022-07-15] MEDS: SODIUM BICARBONATE 8.4% 50 MEQ/50 ML SYRINGE IV PUSH (12:02)
[2022-07-15] MEDS: DEXTROSE 50% 25 GM/50 ML SYRINGE IV PUSH (12:02)
[2022-07-15 12:10] LABS: Platelet Estimate Increased (Adequate); Schistocytes None Seen (NORMAL)
[2022-07-15 12:10] LABS: Glucose Point of Care 150 mg/dl (65-105)
[2022-07-15 12:36] LABS: Appearance Urine Cloudy (Clear); Bilirubin Urine Negative (Negative); Blood Urine 3+ (Negative); Color Urine Yellow (Yellow); Glucose Urine UA Negative (Negative); Ketones Urine Negative (Negative); Leukocyte Esterase Ur 2+ LEU/UL (Negative); Nitrate Urine Negative (Negative); Protein Urine 3+ mg/dL (Negative); Urobilinogen Urine 0.2 mg/dL (<2.0); pH Urine 6.5 (5.0-9.0)
[2022-07-15 12:41] LABS: Bacteria Urine 1+ /hpf; RBC Urine >75 /hpf (0-2); WBC Clumps Urine Present /HPF; WBC Urine >75 /hpf
[2022-07-15 12:48] LABS: Influenza A QL RT-PCR Negative (Negative); Influenza B QL RT-PCR Negative (Negative); SARS-CoV-2 RNA PCR Positive
[2022-07-15 12:54] LABS: Creatine Kinase 1431 U/L (55-170)
[2022-07-15 12:56] LABS: Troponin I 0.041 ng/mL (0.000-0.034)
[2022-07-15] MEDS: SODIUM BICARBONATE 8.4% 50 MEQ/50 ML SYRINGE 100 MEQ IV PUSH ×2 (13:07→20:10)
[2022-07-15 13:10] LABS: Add Urine Microscopic? YES
--- NOTE | 2022-07-15 13:16 | PM.IMHP ---
H&P: HPI History of Present Illness Date/Time: 07/15/22 13:16 Chief Complaint: Weakness Narrative: This is a 77-year-old male patient who was just discharged from this facility on 07/03/2022. Patient was treated for COVID with rhabdomyolysis at that time. The patient did go into acute kidney injury at that time. His BUN was 24 creatinine 1.4 the GFR 49 at that time. Upon discharge the patient was sent to [facility]. When the patient was discharged from this facility patient's renal functions were within normal limits. His creatinine was 1.0 on 07/03/2022 and BUN was 14 on 07/03/2022 and GFR was greater than 60 on that same date. Today, According to the the patient has been having poor oral intake. Today the patient's potassium was 6.4. BUN 119 and creatinine 16.9. GFR is 3. His blood glucose is 166, 150 and 202. His lactic is 17.6 magnesium 3.2 and liver enzymes are elevated. His total creatinine kinase 1431. Troponin 0.041 C reactive protein 4.2 lipase 1202. His white count was 7.8 leg count 807. ABGs pH 6.7-3 CO2 was 22. According the she does not believe that the patient has been receiving his medications. However the did mention that the patient was diagnosed with a urinary tract infection and given Cipro. Abdominal pelvis CT was read as following Bilateral dependent lung opacities may represent atelectasis or infection, possibly with a component of aspiration. Steatosis. Bladder wall thickening may be related to inadequate distention or cystitis. Head CT was read as no acute intracranial abnormality evaluation slightly limited by motion artifact. Age-related findings. The patient was given IV fluids, calcium gluconate, D50, 10 units of regular insulin, sodium bicarb, aztreonam, and Levaquin. The patient's septic and his blood pressure dropped down to 74/41, temperature is 35.0? C and is a documentation that his pulse was 28 and then came up to 58. The patient had been placed on a warming blanket in the information consultant has been notified. Dr. Jane placed a central line and a hemodialysis catheter. Nephrology has been consulted. The patient is being admitted to ICU although the patient is a DNR the family is requesting that he have a central line any placed on vasopressors. The patient is currently on Levophed. The patient is being admitted to inpatient on the date of service of 07/15/2021. Review of Systems Review of Systems: See HPI All systems reviewed & are unremarkable except as noted in HPI and below Constitutional: Constitutional: Reports as per HPI and Reports no additional constitutional complaints Eyes: Eyes: Reports as per HPI and Reports no additional eye complaints ENT: Reports system reviewed and no additional complaints, except as documented and Reports Normal hearing present Cardiovascular: Cardiovascular: Reports no additional cardiovascular complaints Respiratory: Respiratory: Reports no additional respiratory complaints and Reports no additional respiratory complaints Gastrointestinal: Gastrointestinal: Reports as per HPI and Reports no additional gastrointestinal complaints Musculoskeletal: Musculoskeletal: Reports no additional musculoskeletal complaints Integumentary/Breasts: Skin/Breast: Reports system reviewed and no additional complaints, except as docu and Reports as per HPI Neurologic: Reports system reviewed and no additional complaints, except as documented, Reports as per HPI and Reports Normal hearing present Psychiatric: Psychiatric: Reports no additional psychiatric complaints and Reports as per HPI Endocrine: Endocrine: Reports no additional endocrine complaints Hematologic/Lymphatic: Hematologic/Lymphatic: Reports no additional hematologic/lymphatic complaints Allergic/Immunologic: Allergic/Immunologic: Reports no additional allergic/immunologic complaints PMFSH Past Medical History Medical History Abrasion
[2022-07-15 13:28] LABS: CRP 4.2 mg/dL (<1.0)
[2022-07-15] MEDS: NOREPINEPHRINE 8 MG/D5W 250 ML 8 MG/250 ML BAG 18.75 MG IV CONT (13:58)
--- NOTE | 2022-07-15 14:02 | PM.CNNEP ---
Assessment and Plan Assessment and plan (1) SHANNAN (acute kidney injury): Code(s): N17.9 - Acute kidney failure, unspecified Status: Acute Assessment and Plan: suspect ATN due to multiple issues: prerenal factors hemodynamic instability/shock infection rhabdomyolysis (elevated CPK noted) diuretic + BENITO-I + metformin use prior to admission medical management for potassium bicarb fluids for acidosis high risk for needing ENVIRONMENTAL HEALTH AND SAFETY LEADER/dialysis likely unstable for HD today proceed with volume resuscitation and pressors -- reassess stability for dialysis tomorrow if requires significant vasopressor support, may need transfer for CRRT (2) Septic shock: Code(s): A41.9 - Sepsis, unspecified organism; R65.21 - Severe sepsis with septic shock Status: Acute Assessment and Plan: suspected sources are aspiration pneumonia and UTI blood and urine culture done -- follow culture data s/p ongoing IVF resuscitation vasopressor therapy initiated as well follow trend of lactic acid on broad spectrum antibiotic therapy follow trend of hemodynamics (3) Hyperkalemia: Code(s): E87.5 - Hyperkalemia Status: Acute Assessment and Plan: due to SHANNAN/ARF s/p medical management in the ER follow repeat levels (4) Acidosis: Code(s): E87.20 - Acidosis, unspecified Status: Acute Assessment and Plan: quite severe as evidence by admission testing secondary to Shannan/ARF as well as lactic acidosis started on bicarbonate fluids to compensate (5) COVID-19: Code(s): U07.1 - COVID-19 Status: Acute Assessment and Plan: persistently positive for the last month no formal treatment previously as was never hypoxic and CXR clear CXR remains clear and on room air -- no treatment indicated (6) Rhabdomyolysis: Code(s): M62.82 - Rhabdomyolysis Status: Acute Assessment and Plan: as noted by CPK levels follow trend (7) Encephalopathy: Code(s): G93.40 - Encephalopathy, unspecified Status: Acute Assessment and Plan: presumably secondary to uremia +/- sepsis head CT scan negative follow mentation (8) Type 2 diabetes mellitus with hyperglycemia, with long-term current use of insulin: Code(s): E11.65 - Type 2 diabetes mellitus with hyperglycemia; Z79.4 - filling hand (current) use of insulin Status: Acute Assessment and Plan: follow accuchecks glycemic control Discussed case with Dr. Mayen. Greater than 20 minutes was spent in review of the electronic medical record as well as discussion with the physicians/nurses involved in the patient's care as the patient is critically ill with multi-system organ failure with a poor long-term prognosis given his baseline chronic medical issues and problems as well I will continue follow the patient while with you while the patient remains hospitalized to make further recommendations during his hospital course. History of Present Illness Reason for Consult Consult date: 07/15/22 Reason for consult: acute renal failure Chief Complaint Chief complaint: septic shock,acute renal failure,uti,hyperkalemia History of Present Illness Narrative: All the information I have obtained is from review of the electronic medical record as well as discussion with the physician/nurses involved in his care as the patient is unable to provide me with any meaningful history given his current medical state and dementia. The patient is a 77-year-old male with a past medical history as outlined below who presented to [facility] Room for multiple issues/problems as outlined below. The patient was just recently discharged about 10 days ago after a bout of acute kidney injury and rhabdomyolysis. He was treated with a combination of IV fluids in discontinuation of his metformin, lisinopril, and statin with his renal function down to a normal v
--- NOTE | 2022-07-15 14:02 | P.CONNP_ITS ---
Assessment and Plan Assessment and plan (1) SHANNAN (acute kidney injury): Code(s): N17.9 - Acute kidney failure, unspecified Status: Acute Assessment and Plan: * suspect ATN due to multiple issues: * prerenal factors * hemodynamic instability/shock * infection * rhabdomyolysis (elevated CPK noted) * diuretic + BENITO-I + metformin use prior to admission * medical management for potassium * bicarb fluids for acidosis * high risk for needing SUPERVISOR FILM PROCESSING/dialysis * likely unstable for HD today * proceed with volume resuscitation and pressors -- reassess stability for dialysis tomorrow * if requires significant vasopressor support, may need transfer for CRRT (2) Septic shock: Code(s): A41.9 - Sepsis, unspecified organism; R65.21 - Severe sepsis with septic shock Status: Acute Assessment and Plan: * suspected sources are aspiration pneumonia and UTI * blood and urine culture done -- follow culture data * s/p ongoing IVF resuscitation * vasopressor therapy initiated as well * follow trend of lactic acid * on broad spectrum antibiotic therapy * follow trend of hemodynamics (3) Hyperkalemia: Code(s): E87.5 - Hyperkalemia Status: Acute Assessment and Plan: * due to SHANNAN/ARF * s/p medical management in the ER * follow repeat levels (4) Acidosis: Code(s): E87.20 - Acidosis, unspecified Status: Acute Assessment and Plan: * quite severe as evidence by admission testing * secondary to Shannan/ARF as well as lactic acidosis * started on bicarbonate fluids to compensate (5) COVID-19: Code(s): U07.1 - COVID-19 Status: Acute Assessment and Plan: * persistently positive for the last month * no formal treatment previously as was never hypoxic and CXR clear * CXR remains clear and on room air -- no treatment indicated (6) Rhabdomyolysis: Code(s): M62.82 - Rhabdomyolysis Status: Acute Assessment and Plan: * as noted by CPK levels * follow trend (7) Encephalopathy: Code(s): G93.40 - Encephalopathy, unspecified Status: Acute Assessment and Plan: * presumably secondary to uremia +/- sepsis * head CT scan negative * follow mentation (8) Type 2 diabetes mellitus with hyperglycemia, with long-term current use of i nsulin: Code(s): E11.65 - Type 2 diabetes mellitus with hyperglycemia; Z79.4 - meterman (current) use of insulin Status: Acute Assessment and Plan: * follow accuchecks * glycemic control Discussed case with Dr. Mayen. Greater than 20 minutes was spent in review of the electronic medical record as well as discussion with the physicians/nurses involved in the patient's care as the patient is critically ill with multi-system organ failure with a poor long-term prognosis given his baseline chronic medical issues and problems as well I will continue follow the patient while with you while the patient remains hospitalized to make further recommendations during his hospital course. History of Present Illness Reason for Consult Consult date: 07/15/22 Reason for consult: acute renal failure Chief Complaint Chief complaint: septic shock,acute renal failure,uti,hyperkalemia History of Present Illness Narrative: All the information I have obtained is from review of the electronic medical record as well as discussion with the physician/nurses involved in his care as the patient is unable to provide me with any meaningful history given his
[2022-07-15 14:19] LABS: Reflex Lactic Acid Yes or No Add Lactic
--- NOTE | 2022-07-15 14:20 | WPDCNINT ---
Assessment and Plan Assessment and plan (1) Septic shock: Code(s): A41.9 - Sepsis, unspecified organism; R65.21 - Severe sepsis with septic shock Status: Acute Assessment and Plan: Septic shock secondary to UTI and aspiration Blood and urine cultures have been sent Check procalcitonin level Patient has received 3 L of IV fluid bolus. Will start IV fluids with bicarb Levophed and vasopressin drip Stress dose hydrocortisone Monitor lactic acid level Patient is allergic to penicillin -patient has been started on aztreonam Levaquin and Flagyl to provide coverage for UTI and aspiration pneumonia (2) UTI (urinary tract infection): Code(s): N39.0 - Urinary tract infection, site not specified Status: Acute Assessment and Plan: Ross catheter change See above (3) Aspiration pneumonia: Code(s): J69.0 - Pneumonitis due to inhalation of food and vomit Status: Acute Assessment and Plan: See above Place NG tube to low intermittent suction (4) Rhabdomyolysis: Code(s): M62.82 - Rhabdomyolysis Status: Acute Assessment and Plan: See above Monitor CK level (5) RENETTA (acute kidney injury): Code(s): N17.9 - Acute kidney failure, unspecified Status: Acute Assessment and Plan: Patient presented with creatinine of 16.9, potassium 6.4 and severe acidosis with pH of 6.64 He had a Ross catheter in place at longterm I suspect that renal failure is multifactorial which has progressed to ATN Likely etiologies are dehydration shock diuretics BENITO-inhibitor rhabdomyolysis Nephrology has been consulted and I have discussed case with Dr. Fonseca Patient will be resuscitated with IV fluids started on IV fluid His hyperkalemia has been treated and BMP will be repeated His acidosis was treated with sodium bicarbonate IV push and will be started on IV bicarb fluid I anticipate patient will hemodialysis hence I have placed a temporary dialysis catheter after obtaining consent from patient's who does want hemodialysis. At this point patient is too unstable due to shock. Once he is volume resuscitated and started on vasopressors, if he stabilizes will proceed with dialysis tomorrow Obviously if he needs dialysis and does not tolerate intermittent dialysis he may need CRRT (6) Atrial fibrillation: Code(s): I48.91 - Unspecified atrial fibrillation Status: Acute Assessment and Plan: Currently rate controlled Hold Cardizem due to shock Patient not on anticoagulation Monitor (7) Type 2 diabetes mellitus with hyperglycemia, with long-term current use of insulin: Code(s): E11.65 - Type 2 diabetes mellitus with hyperglycemia; Z79.4 - prison (current) use of insulin Status: Acute Assessment and Plan: Sliding scale insulin (8) Pancreatitis: Code(s): K85.90 - Acute pancreatitis without necrosis or infection, unspecified Status: Acute Assessment and Plan: Elevated lipase CT abdomen pelvis reviewed and does not show any significant inflammation around pancreas area Monitor lipase level And p.o. (9) Acidosis: Code(s): E87.20 - Acidosis, unspecified Status: Acute Assessment and Plan: Patient received IV bicarbonate 3 ampules IV push Will start patient on IV fluids with bicarbonate (10) Hyperkalemia: Code(s): E87.5 - Hyperkalemia Status: Acute Assessment and Plan: Patient received insulin D50 sodium bicarbonate and calcium in the ED Recheck BMP (11) Ileostomy present: Code(s): Z93.2 - Ileostomy status Status: Acute Assessment and Plan: Patient has ileostomy with semi-formed stool Patient had loose stool from his rectum. Will check for C diff (12) Encephalopathy: Code(s): G93.40 - Encephalopathy, unspecified Status: Acute Assessment and Plan: Likely metabolic encephalopathy from uremia. Check ammonia level Head CT unremarkable for
[2022-07-15 14:34] LABS: Glucose Point of Care 202 mg/dl (65-105)
[2022-07-15] MEDS: NOREPINEPHRINE 8 MG/D5W 250 ML 8 MG/250 ML BAG 9.38 MG IV CONT (14:35)
--- NOTE | 2022-07-15 14:45 | WPDPROCEDUR ---
Procedures Hemodialysis Catheter Placement Right Femoral: Discussed w/ patient and/or surrogate, the non-emergent placement of a hemodialysis catheter, including it's clinincal necessity/indication & associated potential risks & complications.: Yes The patient and/or surrogate understand(s) and acknowledge(s) the need to proceed with hemodialysis catheter insertion as an important element of the patient's clinical management.: Yes Consent: Consent was obtained from patient's HD Catheter Date: 07/15/22 HD Catheter Time: 13:30 Pre-procedural Time-Out was completed immediately before starting the procedure and confirmed: Patient Identification, Site, Procedure, Patient Position and the Availability of Requisite Equipment.: Yes Patient Position: supine Patient Placed on Monitor/Pulse Ox: Yes Provider Prep: mask, sterile gown, sterile gloves, Max. sterile barrier precautions, cap and hand hygiene Hemodialysis Catheter Prep: Chlorhexidine scrub Local Anesthesia Used: lidocaine 1% Amount of anesthesia used (mL): 5 Ultrasound Used for Placement: Yes Hemodialysis Catheter Inserted: triple Swedish: 13 Length (cm): 24 Depth of Insertion (cm): 24 Post Procedure: sutured in place, good blood return, all ports aspirated, flushed, capped, transparent dressing and aseptic technique maintained throughout procedure Patient Tolerated Procedure: well Complications: none
[2022-07-15 15:05] LABS: Base Excess ABG -32.7 mEq/l (+/-2.0); Carboxyhemoglobin 0.2 % THb (0-2.0); Fractional Inspired Oxygen 21 %; HCO3 ABG 2.8 mEq/l (22.0-26.0); Methemoglobin ABG 0.7 %THb (0-1.5); Oxygen Content ABG 17.4 %vol (16.0-22.0); Oxyhemoglobin 91.1 % THb (90.0-100.0); PO2 ABG 99.4 mmHg (80.0-100.0); PO2 FiO2 Ratio Arterial Blood 4.73 %; Total Hemoglobin 13.5 g/dL (12.0-18.0)
[2022-07-15 15:06] LABS: pH ABG 6.723 (7.350-7.450)
[2022-07-15 15:08] LABS: Oxygen Saturation ABG 86.8 % (95.0-100.0)
[2022-07-15 15:09] LABS: Device ROOM AIR; Site Drawn LEFT BRACHIAL
[2022-07-15] MEDS: VASOPRESSIN INJ 100 UNITS in DEXTROSE 5% 95 ML IV CONT (15:14)
[2022-07-15] MEDS: SODIUM BICARBONATE 8.4% 150 MEQ in WATER, STERILE FOR INJECTION 950 ML 125 MEQ IV CONT (15:14)
[2022-07-15] MEDS: AZTREONAM 2 GM in SODIUM CHLORIDE 0.9% IV 100 ML 200 ML IVPB (15:27)
[2022-07-15] MEDS: LACTATED RINGERS 500 ML 999 ML IV CONT (15:36)
[2022-07-15 16:13] LABS: Ammonia 180 umol/L (9-30)
[2022-07-15 16:21] LABS: Blood Urea Nitrogen 119 mg/dL (9-20); Calcium 7.8 mg/dL (8.4-10.2); Carbon Dioxide < 5 mmol/L (22-30); Chloride 96 mmol/L (98-107); Glucose 252 mg/dL (65-110); Potassium 5.7 mmol/L (3.4-5.0); Sodium 137 mmol/L (137-145)
[2022-07-15 16:26] LABS: Estimated CRCL calculation 5 ml/min; Estimated Glomerular Filt Rate 3
[2022-07-15 16:39] LABS: Troponin I 0.105 ng/mL (0.000-0.034)
[2022-07-15 16:47] LABS: Lactic Acid 19.5 mmol/L (0.7-2.0)
[2022-07-15 17:00] LABS: Procalcitonin 2.7 ng/mL
[2022-07-15] MEDS: ALBUMIN HUMAN 5% 25 GM/500 ML BTL IV CONT (18:33)
[2022-07-15] MEDS: CALCIUM GLUC 2,000 MG/NS 100ML 2,000 MG/100 ML BAG 100 MG IVPB (18:44)
[2022-07-15] MEDS: metroNIDAZOLE 500 MG/ISO 100ML 500 MG/100 ML BAG 100 MG IVPB ×2 (18:44→22:55)
[2022-07-15] MEDS: LACTULOSE 20 GM/30 ML UDC PO (18:46)
[2022-07-15] MEDS: SODIUM ZIRCONIUM CYCLOSILICATE 10 GM POWD.PACK PO (18:47)
[2022-07-15] MEDS: EPINEPHrine INJ 4 MG in DEXTROSE 5% IN WATER 250 ML 19.05 MG IV CONT (20:11)
[2022-07-15] MEDS: HYDROCORTISONE SODIUM SUCCINATE 100 MG/2 ML VIAL IV PUSH (20:18)
[2022-07-15 20:31] LABS: Glucose Point of Care 246 mg/dl (65-105)
[2022-07-15 23:04] LABS: Troponin I 0.921 ng/mL (0.000-0.034)
[2022-07-15 23:14] LABS: Lactic Acid Reflex 19.5 mmol/L (0.7-2.0)
[2022-07-15] MEDS: NOREPINEPHRINE 8 MG/D5W 250 ML 8 MG/250 ML BAG 56.25 MG IV CONT (23:24)
[2022-07-16] VITALS (17 sets, daily range): BP systolic 89–114; BP diastolic 28–60; PULSE 64–92; RESP 19–22; TEMP 35.9–36; O2SAT 92–98
[2022-07-16 00:50] LABS: Glucose Point of Care 300 mg/dl (65-105)
[2022-07-16] MEDS: INSULIN ASPART (*BKC) 100 UNITS/ML SUB-Q ×2 (01:04→06:30)
[2022-07-16] MEDS: SODIUM BICARBONATE 8.4% 150 MEQ in WATER, STERILE FOR INJECTION 950 ML 125 MEQ IV CONT ×2 (01:07→08:24)
[2022-07-16] MEDS: EPINEPHrine INJ 4 MG in DEXTROSE 5% IN WATER 250 ML 45.72 MG IV CONT (03:27)
[2022-07-16] MEDS: NOREPINEPHRINE 8 MG/D5W 250 ML 8 MG/250 ML BAG 56.25 MG IV CONT (03:28)
[2022-07-16 05:29] LABS: Base Excess ABG -31.1 mEq/l (+/-2.0); Carboxyhemoglobin 0.2 % THb (0-2.0); Fractional Inspired Oxygen 32 %; HCO3 ABG 3.5 mEq/l (22.0-26.0); Methemoglobin ABG 0.5 %THb (0-1.5); Oxygen Content ABG 15.2 %vol (16.0-22.0); Oxyhemoglobin 89.6 % THb (90.0-100.0); PCO2 ABG 25.6 mmHg (35.0-45.0); PO2 ABG 87.2 mmHg (80.0-100.0); PO2 FiO2 Ratio Arterial Blood 2.72 %; Reduced Hemoglobin 9.7 %THb (0-5.0)
[2022-07-16 05:31] LABS: pH ABG 6.754 (7.350-7.450)
[2022-07-16 05:32] LABS: Oxygen Saturation ABG 82.8 % (95.0-100.0); Site Drawn RIGHT RADIAL
[2022-07-16 05:33] LABS: Device NASAL CANNULA; Liters per Minute 3.5 LPM; Modified Allen's Test Pass
[2022-07-16 06:16] LABS: Basophils Absolute Auto 0.1 K/mm3 (0.0-0.1); Basophils Percent Auto 0.5 % (0.2-1.2); Hematocrit 36.4 % (42.0-52.0); Hemoglobin 10.3 g/dL (14.0-18.0); Immature Granulocyte Absolute 1.05 K/mm3 (0.00-0.031); Immature Granulocyte Percent A 3.7 % (0-0.5); Lymphocytes Absolute Auto 2.76 K/mm3 (0.9-3.2); Lymphocytes Percent Auto 9.6 % (18.3-44.2); Mean Corpuscular HGB Conc 28.3 g/dl (32-36); Mean Corpuscular Hemoglobin 28.7 pg (26-34); Mean Corpuscular Volume 101.4 fl (80-100); Mean Platelet Volume 10.7 fl (7.4-10.4); Monocytes Absolute Auto 2.2 K/mm3 (0.1-0.6); Monocytes Percent Auto 7.7 % (2.6-8.5); Neutrophils Absolute Auto 22.5 K/mm3 (1.3-6.7); Neutrophils Percent Auto 78.5 % (45.5-73.1); Platelet Count Result 646 k/mm3 (150-375); Red Blood Count 3.59 M/mm3 (4.6-6.20); Red Cell Distribution Width 13.9 % (11.5-14.5); White Blood Count 28.6 K/mm3 (4.5-10.0)
[2022-07-16] MEDS: EPINEPHrine INJ 4 MG in DEXTROSE 5% IN WATER 250 ML 76.2 MG IV CONT ×2 (06:30→08:44)
[2022-07-16] MEDS: metroNIDAZOLE 500 MG/ISO 100ML 500 MG/100 ML BAG 100 MG IVPB (06:31)
[2022-07-16] MEDS: HYDROCORTISONE SODIUM SUCCINATE 100 MG/2 ML VIAL IV PUSH (06:31)
[2022-07-16 06:55] LABS: Alanine Aminotransferase 77 U/L (6-50); Albumin Level 3.4 g/dL (3.5-5.1); Alkaline Phosphatase 97 U/L (38-126); Aspartate Amino Transferase 281 U/L (17-59); Bilirubin,Total 0.6 mg/dL (0.2-1.3); Calcium 7.3 mg/dL (8.4-10.2); Carbon Dioxide < 5 mmol/L (22-30); Chloride 88 mmol/L (98-107); Creatine Kinase 2979 U/L (55-170); Estimated CRCL calculation 5 ml/min; Estimated Glomerular Filt Rate 3; Glucose 434 mg/dL (65-110); Potassium 6.7 mmol/L (3.4-5.0); Sodium 137 mmol/L (137-145)
[2022-07-16 06:58] LABS: Blood Urea Nitrogen 129 mg/dL (9-20); Phosphorus 23.8 mg/dL (2.5-4.5)
[2022-07-16 07:21] LABS: Hepatitis B Surface Antigen Negative (Negative)
[2022-07-16 07:25] LABS: Glucose Point of Care 412 mg/dl (65-105)
[2022-07-16 07:26] LABS: HAV RESULT Negative (Negative); Hepatitis B Core IgM Result Negative (Negative)
[2022-07-16] MEDS: SODIUM BICARBONATE 8.4% 50 MEQ/50 ML SYRINGE 100 MEQ IV PUSH (07:44)
[2022-07-16 07:45] LABS: Hepatitis B Surface Anti Res Positive; Hepatitis C Virus Antibody Negative (Negative)
[2022-07-16] MEDS: INSULIN HUMAN REGULAR (*BKC) 100 UNITS/ML 10 UNITS IV PUSH (07:46)
[2022-07-16] MEDS: CALCIUM GLUC 2,000 MG/NS 100ML 2,000 MG/100 ML BAG 100 MG IVPB (08:16)
--- NOTE | 2022-07-16 08:19 | WPDINTPN ---
Progress Note: A&P Assessment and Plan (1) Septic shock: Code(s): A41.9 - Sepsis, unspecified organism; R65.21 - Severe sepsis with septic shock Status: Acute Assessment and Plan: Septic shock secondary to UTI and aspiration Blood and urine cultures have been sent Check procalcitonin level Patient has received > 4 L of IV fluid bolus. And is on IV fluids with bicarb Levophed, epinephrine and vasopressin drip Stress dose hydrocortisone Monitor lactic acid level which has remained high Patient is allergic to penicillin -patient has been started on aztreonam Levaquin and Flagyl to provide coverage for UTI and aspiration pneumonia (2) UTI (urinary tract infection): Code(s): N39.0 - Urinary tract infection, site not specified Status: Acute Assessment and Plan: Ross catheter change See above (3) Aspiration pneumonia: Code(s): J69.0 - Pneumonitis due to inhalation of food and vomit Status: Acute Assessment and Plan: See above Place NG tube to low intermittent suction (4) Rhabdomyolysis: Code(s): M62.82 - Rhabdomyolysis Status: Acute Assessment and Plan: See above Monitor CK level (5) RENETTA (acute kidney injury): Code(s): N17.9 - Acute kidney failure, unspecified Status: Acute Assessment and Plan: Patient presented with creatinine of 16.9, potassium 6.4 and severe acidosis with pH of 6.64 He had a Ross catheter in place at [facility] I suspect that renal failure is multifactorial which has progressed to ATN Likely etiologies are dehydration shock diuretics BENITO-inhibitor rhabdomyolysis Nephrology has been consulted and I discussed case with Dr. Fonseca Patient was resuscitated with IV fluids started on IV fluid His hyperkalemia has been treated and BMP was repeated His acidosis was treated with sodium bicarbonate IV push and was started on IV bicarb fluid I anticipate patient will need hemodialysis hence I placed a temporary dialysis catheter after obtaining consent from patient's who does want hemodialysis. At this point patient is too unstable due to shock. Once he is volume resuscitated and started on vasopressors, if he stabilizes will proceed with dialysis tomorrow Overnight patient remains anuric, hyperkalemia which had initially improved is now worsen, acidosis persists along with worsening uremia creatinine. -see below (6) Atrial fibrillation: Code(s): I48.91 - Unspecified atrial fibrillation Status: Acute Assessment and Plan: Currently rate controlled Hold Cardizem due to shock Patient not on anticoagulation Monitor (7) Type 2 diabetes mellitus with hyperglycemia, with long-term current use of insulin: Code(s): E11.65 - Type 2 diabetes mellitus with hyperglycemia; Z79.4 - [employer] (current) use of insulin Status: Acute Assessment and Plan: Sliding scale insulin which has been increased (8) Pancreatitis: Code(s): K85.90 - Acute pancreatitis without necrosis or infection, unspecified Status: Acute Assessment and Plan: Elevated lipase CT abdomen pelvis reviewed and does not show any significant inflammation around pancreas area Monitor lipase level npo (9) Acidosis: Code(s): E87.20 - Acidosis, unspecified Status: Acute Assessment and Plan: Patient received IV bicarbonate 3 ampules IV push in the ED Patient was started on IV fluids with bicarbonate He was given additional pressure IV overnight And again this morning (10) Hyperkalemia: Code(s): E87.5 - Hyperkalemia Status: Acute Assessment and Plan: Patient received insulin D50 sodium bicarbonate and calcium in the ED Lokelma was given in the ICU Repeat BMP showed improvement but potassium again elevated this morning Patient given calcium IV insulin IV bicarb (11) Ileostomy present: Code(s): Z93.2 - Ileostomy status Status: Acute Assessment and Plan: Giovanni
[2022-07-16 09:10] LABS: Reflex Lactic Acid Yes or No Add Lactic
[2022-07-16] MEDS: MORPHINE SULFATE (*CRX) 2 MG/ML INJ 4 MG IV PUSH (10:44)
--- NOTE | 2022-07-16 11:20 | PC.NURSE ---
Patient asystole on the monitor at 1118. Heart sounds are absent, no pulse present, no neuro reflexes noted. Patient family is at bedside. [facility] [employer] and [facility] have released the body for the home.
[2022-07-20 11:12] LABS: Device ROOM AIR
[2022-07-20 11:29] LABS: Hepatitis B Core Ab Total Nonreactive (Nonreactive)
--- NOTE | 2022-07-28 13:10 | PM.DDS ---
Discharge Summary Date and Time Date of : 07/16/22 Time of : 11:18 Provider Pronounced By: Marisela Epps RN and Grisel Hutson RN Probable Cause of Probable Cause of : Septic shock Summary Hospital Course: Renetta Saenz is a 77 year old male with past medical history of dementia, chronic back pain, chronic venous status, diabetes, hyperlipidemia, hypertension who was recently discharged from [facility] on 07/03 to care home after treatment for acute kidney injury and rhabdomyolysis.? His metformin lisinopril and statin were held.? He was also tested positive for COVID but was not treated since he was not hypoxic.? He Was given IV fluids and was discharged on 07/03 to care home.? Creatinine was 1 on the day of discharge.? On 07/15 he was sent to ED with multiple complaints.? Patient was unable to provide any history and history was obtained from patient's who was at bedside.? She states that during the stay in the care home patient had trouble with his Ross catheter and was changed once.? He had poor p.o. intake throughout.? He also vomited yesterday.? She stated that he had been gradually getting weak and less responsive.? He was started on ciprofloxacin recently in care home for UTI.? He has been bedridden.? She states she was unhappy with the care he was receiving at care home.? She denied being aware of any fever diarrhea hematuria hematochezia melena. In ED patient's Ross catheter was changed and he was found to be having acute kidney injury, severe metabolic acidosis, hyperkalemia, dehydration, sepsis, hypotension and UTI.? He was given IV fluid bolus and hyperkalemia was treated with IV bicarb calcium and dextrose.? I was consulted by ER physician evaluated patient in the ED..? During my evaluation again patient was on unable to answer any questions and was mumbling on calling his name and speaking inappropriate words infrequent.? Above-mentioned history as above mentioned has been obtained from patient's was at bedside..? I emergently placed a central venous catheter in the ED since patient needs vasopressors.? Patient was DNR DNI which was confirmed the patient's and daughter at bedside at that time Overnight patient continued to deteriorate with increased vasopressor requirement despite adequate IV fluid resuscitation. By moaning patient was on 3 pressors Levophed epinephrine and vasopressin. Is on IV fluids with bicarb. Also on stress dose steroids. Was treated with broad-spectrum empiric antibiotics for UTI and aspiration pneumonia. He was also found to be in acute kidney injury and rhabdomyolysis. Pre dialysis catheter was placed but patient was too unstable for regular hemodialysis due to his severe shock. Patient remained any uric acidotic and potassium level was worse. Was also encephalopathy. Next morning on 07/16, I spoke to patient's and and 3 children in the waiting room and had a long meeting with them.? I explained the patient's status including severe septic shock requiring 3 vasopressors at high dose, persistent and low urine output, hyperkalemia, worsening renal failure and acidosis.? I discussed option of transferring to a tertiary facility for CRRT since patient is on multiple vasopressors and will not tolerate intermittent hemodialysis.? I explained them the risk involved with transferring patient and the guarded prognosis that he has even if he receives CRRT.? I also discussed option of comfort care with them.? They spoke among themselves and expressed to me that patient would not want to continue like this.? The daughter states the patient was so unhappy even at the care home because he could not do much for himself.? They felt that even if he survives after all this he would be miserable if he goes back to a facility.? They feel that we should treat patient's pain and keep him comfortable. The family decided, in accordance with pt's wishes, to disco
== END 2022-07-16 11:18 | disposition expired | DRG 871 ==
LOC: ANHED 11:15 → ANHICU 13:26
PROVIDERS: Internal Medicine Nephrology; Admitting Provider Internal Medicine; Emergency Provider Emergency Medicine; PCP Family Medicine; Visit Provider Internal Medicine
DX: A41.9 Sepsis, unspecified organism (principal); J69.0 Pneumonitis due to inhalation of food and vomit; U07.1 COVID-19; R65.21 Severe sepsis with septic shock; K85.90 Acute pancreatitis without necrosis or infection, unspecified; N17.0 Acute kidney failure with tubular necrosis; N39.0 Urinary tract infection, site not specified; M62.82 Rhabdomyolysis; E87.20 Acidosis, unspecified; G93.40 Encephalopathy, unspecified; I87.8 Other specified disorders of veins; I10 Essential (primary) hypertension; E87.5 Hyperkalemia; E11.319 Type 2 diabetes mellitus with unspecified diabetic retinopathy without macular edema; E11.65 Type 2 diabetes mellitus with hyperglycemia; E11.40 Type 2 diabetes mellitus with diabetic neuropathy, unspecified; E78.2 Mixed hyperlipidemia; K57.30 Diverticulosis of large intestine without perforation or abscess without bleeding; K21.9 Gastro-esophageal reflux disease without esophagitis; M17.0 Bilateral primary osteoarthritis of knee; R68.0 Hypothermia, not associated with low environmental temperature; H35.30 Unspecified macular degeneration; G47.33 Obstructive sleep apnea (adult) (pediatric); F32.A Depression, unspecified; Z66 Do not resuscitate; Z79.4 Long term (current) use of insulin; Z98.1 Arthrodesis status; Z93.2 Ileostomy status; Z90.49 Acquired absence of other specified parts of digestive tract; Z89.022 Acquired absence of left finger(s); Z87.891 Personal history of nicotine dependence
CPT/HCPCS: 36415; 36600; 70450; 71045; 74176; 80048; 80053; 80074; 81001; 82140; 82375; 82550; 82805; 82948; 83050; 83605; 83690; 83735; 84100; 84145; 84484; 85025; 85610; 85730; 86140; 86704; 86706; 87040; 87086; 87147; 87181; 87186; 87340; 87636; 93005; 96374; 96375; 96376; 99285; A9270; C1751; J0171; J0610; J0612; J1720; J1815; J1956; J2270; J7030; J7060; J7120; P9045